=== PATIENT | male | born 1960 | race Two or more races ===

== ENCOUNTER 2024-08-19 11:35 | Inpatient (IN) | payer OTHER ==
[2024-08-19] VITALS (27 sets, daily range): BP systolic 96–138; BP diastolic 51–89; PULSE 71–97; RESP 11–31; TEMP 99.1; O2SAT 94–99
[~2024-08-19] VITALS: Ht 177.8 cm; Wt 104.0 kg
--- NOTE | 2024-08-19 11:55 | ED.PDOC ---
CPR-HPI HPI Comments HPI: 64 M BIBA, for the c/c of a Cardiac Arrest, EMS states that pt was found collapsed in the shower by his , per EMS stated that pt was cyonotic, and started Compression and mouth to mouth. EMS states pt was hypotensive at 55 before administering 1 mg of epi, pt proceeded to go into V-Fib, then Shocked, pt was then in Sinus Tach 125. Pt is currently unresponsive at this time, with symetical but non-dilated pupils. Blood sugar currently 255. PMHx: SOB, Asthma, Higher lipidemia PSHx: Unknown Allergies: NKDA CARDIAC ARREST: HPI: Poor Historian. REVIEW OF SYSTEMS: Unable to obtain given the patient's unresponsive state post cardiac arrest. CONSTITUTIONAL: Denies acute: fever, diaphoresis, chills, generalized weakness. HEAD: Denies acute: headache, photophobia Eyes: Denies acute: Double vision, vision loss, eye pain, eye discharge. EARS: Denies acute: tinnitus, hearing loss, ear discharge, ear pain, THROAT: Denies acute: sore throat, swelling, difficulty swallowing , pain with swallowing, change in voice. NECK: Denies acute: neck pain, neck swelling, stiff neck. HEART: Denies acute : chest pain, palpitations, LUNGS: Denies acute: SOB, wheezing, cough, hemoptysis ABDOMEN: Denies acute: abdominal pain, Nausea, Vomiting, diarrhea, melena , hematemesis, hematochezia SKIN: Denies acute: rash, redness, lesions, itchiness. EXTREMITIES: Denies acute: calf pain, numbness, tingling, weakness, denies pain in extremity. Denies acute: Low back pain. Neuro: Denies acute: focal neurological deficit, motor or sensory focal neurological deficit, tremors, seizure like activity, confusion, dizziness, change in mental status, loss of bowel or bladder function, cauda equina like symptoms. : Denies acute: dysuria, hematuria, flank pain, increase in urinary frequency. PSYCH: Denies acute: hallucination, suicidal ideation, homicidal ideation. PHYSICAL EXAM: General: Unresponsive, post cardiac arrest, post CPR, post cardiac shock. Head: normocephalic, atraumatic. Noted nasal bridge injury Neck: C-collar was placed immediately upon arrival. Throat: No apparent bleeding. Eyes:, no erythema, no purulent discharge, no proptosis, no icterus. Heart: regular tachycardia,, no significant murmur appreciated. Lungs: No wheezing, bilateral rhonchi, no crackles. No stridors Abdomen: Noticeably distended. Most likely from the intubation being in the esophagus. Neuro: GCS 3, Pupils: Symmetrical, nondilated, nonreactive. Skin: no petechia, no purpura, no cyanosis, non-pale, not jaundice. Lower extremities: --no - Pitting edema no deformity, no focal swelling, no calf TTP. Noted below left knee IO access done in the field. Face: no apparent facial droop. ED COURSE: Chief Complaint: CPR Time Seen by MD: 11:35 Reviewed Notes: Medications, Allergies Allergies: Coded Allergies: NO KNOWN ALLERGIES (Unverified , 08/19/24) Information Source: Emergency Med Personnel Mode of Arrival: EMS Past Medical History PAST MEDICAL HISTORY: Asthma Surgical History: Unknown Family History Family History: Unknown Social History Smoker: Unknown Alcohol: Unknown Drugs: Unknown Lives In: Home Was a procedure done? 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 Indication: Volume resuscitation Room prepared for procedure: Yes [employer] performed hand hygien: Yes Maximal sterile barrier precau: Mask/Eye shield, Sterile gown, Cap, Sterlie gloves, Large sterlie drape Skin Preparation: Chlorhexidine gluconate Insertion site: Left, Femoral Central line catheter type: Ysb-rjrtlxyi-vug dialysis Number of lumens: 3 Differential Dx CPR Differential Diagnosis: Cardiopulmonary arrest, Cardiac Tamponade, Cardiogenic shock, Dysrhythmia, Electrolyte disorder, Heart Block, Myocardial Infarction, Pneumothorax, Pulmonary Embolus, Respiratory Failure, Ruptured Aortic Aneurysm, Other (Includes but not limited to thyroid disease, encephalopathy, electrolyte abnormality, sepsis, infection, intracranial pathology, drug adverse effects, arrhythmia, kidney insufficiency, ACS, CVA, malignancy, anemia) X-Ray, Labs, Meds, VS Vital Signs Date Time Temp Pulse Resp B/P (MAP) Pulse Ox O2 Delivery O2 Flow Rate FiO2 08/19/24 14:32 119/62 08/19/24 14:30 98 27 135/76 (95) 97 08/19/24 14:29 97 31 135/76 (95) 98 40 08/19/24 14:15 89 18 119/62 (81) 96 08/19/24 14:00 95 18 121/74 (90) 95 08/19/24 13:45 89 18 120/62 (81) 97 08/19/24 13:32 113/46 08/19/24 13:30 84 18 106/52 (70) 98 08/19/24 13:15 83 18 101/60 (74) 99 08/19/24 13:04 92/58 08/19/24 13:00 89 29 138/89 99 100 08/19/24 13:00 86 18 92/58 (69) 98 08/19/24 12:45 89 15 101/66 (78) 99 08/19/24 12:43 89 08/19/24 12:30 107 14 106/52 (70) 99 08/19/24 12:17 89 29 138/89 (105) 99 100 08/19/24 12:15 107 14 135/79 (97) 99 08/19/24 12:04 138/89 08/19/24 12:00 107 14 124/67 (86) 98 08/19/24 12:00 105 08/19/24 11:45 98.0 110 11 179/154 (162) 98 98.0 08/19/24 11:45 73 11 98 Mechanical Ventilator+ 40 40 08/19/24 11:39 91 Lab Test 08/19/24 13:43 08/19/24 13:35 08/19/24 13:10 08/19/24 11:45 Range/Units Prothrombin Time 11.2 9.3-11.8 sec Prothrombin Time INR 1.06 0.9-1.15 Activated Partial Thromboplast Time 24.7 24.5-34.5 SEC Lactic Acid Level 3.1 *H 14.5 *H 0.4-2.0 mmol/L Troponin I High Sensitivity 114 *H 51 </=54 ng/L Blood Gas Specimen Type Arterial Blood Gas Sample Site Right radial Blood Gas Patient Temperature 37.0 Arterial Blood Date Drawn [id number] Arterial Blood pH 7.298 L 7.350-7.450 Arterial Blood Partial Pressure CO2 36.1 35.0-48.0 mmHg Arterial Blood Partial Pressure O2 425.4 *H 83.0-108.0 mmHg Arterial Blood HCO3 17.3 L 21.0-28.0 mmol/L Arterial Blood Oxygen Saturation 99.9 H 94.0-98.0 % Arterial Blood Base Excess -8.3 L -2.0-3.0 mmol/L Arterial Blood Oxyhemoglobin 98.7 H 94.0-98.0 % Arterial Blood Carboxyhemoglobin 0.5 0.5-1.5 % Arterial Blood Methemoglobin 0.7 0.0-1.5 % Thee Test Modified Blood Gas Total Hemoglobin 15.60 13.5-17.5 g/dL Blood Gas Set Respiration Rate 24.0 Blood Gas Modality Vent - ac FiO2 % 100.0 Blood Gas Tidal Volume 550.0 Blood Gas PEEP or CPAP 5.0 Blood Gas Critical Value Read Back yes Blood Gas Notified Whom Blood Gas Notified Time [id number] Blood Gas Notified By detention officer harriet Urine Color Yellow Yellow Urine Clarity Turbid H Clear Urine pH 6.0 5.0-9.0 Urine Specific Boron 1.018 1.001-1.035 Urine Protein 2+ H Negative Urine Ketones Negative Negative Urine Blood 2+ H Negative /uL Urine Nitrite Negative Negative Urine Bilirubin Negative Negative Urine Urobilinogen Normal Negative mg/dL Urine Leukocyte Esterase Negative Negative /uL Urine RBC 12 0 - 3 /hpf Urine Microscopic WBC 7 H 0-3 /HPF Urine Squamous Epithelial Cells Mod <5 /hpf Urine Bacteria Few H None Seen /hpf Urine Mucus Few None Seen Urine Creatinine 108.36 30.0-125.0 mg/dL Urine Sodium 51 40-220 mmol/L Urine Glucose 1+ H Normal mg/dL Urine Opiates Screen Neg NEGATIVE Urine Fentanyl Screen Neg NEGATIVE Urine Barbiturates Screen Neg NEGATIVE Urine Phencyclidine Screen Neg NEGATIVE Urine Amphetamines Screen Neg NEGATIVE Urine Benzodiazepines Screen Pos NEGATIVE Urine Cocaine Screen Neg NEGATIVE Urine Cannabinoids Screen Neg NEGATIVE White Blood Count 8.3 4.4-10.8 10^3/uL Red Blood Count 4.95 4.5-5.90 10^6/uL Hemoglobin 15.2 13.5-17.5 g/dL Hematocrit 48.1 41.0-53.0 % Mean Corpuscular Volume 97.2 80.0-100.0 fL Mean Corpuscular Hemoglobin 30.7 28.0-32.0 pg Mean Corpuscular Hemoglobin Concent 31.6 L 32.0-36.0 g/dL Red Cell Distribution Width 15.4 H 11.8-14.3 % Platelet Count 211 140-450 10^3/uL Mean Platelet Volume 8.9 6.9-10.8 fL Neutrophils (%) (Auto) 35.5 L 37.0-80.0 % Lymphocytes (%) (Auto) 53.3 H 10.0-50.0 % Monocytes (%) (Auto) 8.2 0.0-12.0 % Eosinophils (%) (Auto) 2.4 0.0-7.0 % Basophils (%) (Auto) 0.6 0.0-2.0 % Neutrophils # (Auto) 3.0 1.6-8.6 10 ^3/uL Lymphocytes # (Auto) 4.4 0.4-5.4 10 ^3/uL Monocytes # (Auto) 0.7 0-1.3 10 ^3/uL Eosinophils # (Auto) 0.2 0-0.8 10 ^3/uL Basophils # (Auto) 0 0-0.2 10 ^3/uL Nucleated Red Blood Cells 0.3 % Erythrocyte Sedimentation Rate 7 0-20 mm/hr Sodium Level 144 136-145 mmol/L Potassium Level 5.2 H 3.5-5.1 mmol/L Chloride Level 108 H 98-107 mmol/L Carbon Dioxide Level 13 L 20-31 mmol/L Anion Gap 23 H 5-15 Blood Urea Nitrogen 15 9-23 mg/dL Creatinine 1.33 H 0.700-1.30 mg/dL Glomerular Filtration Rate Calc 59 >90 mL/min BUN/Creatinine Ratio 11.3 10.0-20.0 Serum Glucose 324 H 74-106 mg/dL Calcium Level 9.9 8.7-10.4 mg/dL Magnesium Level 2.5 1.6-2.6 mg/dL Total Bilirubin 0.3 0.2-1.0 mg/dL Aspartate Amino Transferase (AST) 135 H 13-40 U/L Alanine Aminotransferase (ALT) 169 H 7-40 U/L Alkaline Phosphatase 76 46-116 U/L C-Reactive Protein High Sensitivity 0.86 <1.0 mg/dL B-Type Natriuretic Peptide 175.57 0-100 pg/mL Total Protein 6.9 5.7-8.2 g/dL Albumin 4.5 3.2-4.8 g/dL Microbiology Date/Time Source Procedure Growth Status 08/19/24 13:10 Voided Urine Urine Culture - Preliminary Resulted 08/19/24 12:30 Blood Blood Culture - Preliminary Resulted 08/19/24 11:45 Sputum Gram Stain - Final Resulted 08/19/24 11:45 Sputum Respiratory Culture - Preliminary Resulted 08/19/24 11:40 Blood Blood Culture - Preliminary NO GROWTH AFTER 24 HOURS OF INCUBATION. Resulted Time of 1ST Reevaluation: 11:54 Reevaluation 1ST: Unchanged Time of 2ND Reevaluation: 22:46 (Initial chemistry obtained shows hyperglycemia with anion gap of 23. Patient has no history of diabetes. I suspect that this is due to the cardiac arrest. Patient was given fluids resuscitation. Repeat CMP was ordered at this time and still awaiting results. The care of this patient was transferred to my colleague to follow up on the repeat CMP and notified the admitting team as needed. Patient has already been admitted awhile ago and is awaiting bed assignment.) Patient Education/Counseling: Pt Unresponsive Family Education/Counseling: No Family Present Comments Patient was evaluated immediately upon arrival. C-collar was placed immediately upon arrival. Patient arrived in sinus tachycardia with rock. Patient was intubated in the field however it was not in the endotracheal tube it was in the esophagus instead. Patient was appropriately ventilated bag-valve mask and preoxygenated and GlideScope was used to intubate the patient. Successful intubation from 1st attempt. OG tube was placed. Fluids were given to the patient. Given his history of asthma, patient was given albuterol ipratropium and Solu-Medrol. Patient met sepsis criteria, patient was given broad-spectrum antibiotics and fluids. Versed was used for sedation and patient required an additional drip because he was breathing over the vent and biting the tube. Propofol was initiated as well. Central line was placed. C-collar was left in place for reassessment with the patient is awake. Repeat CMP shows significant improvement and lactic acid improvement. Departure 1 Departure Time of Disposition: 12:26 Impression: Primary Impression: Cardiopulmonary arrest Additional Impressions: Ventricular fibrillation Syncope and collapse Facial injury Disposition: ADMITTED INPATIENT Admit to: ICU Condition: Critical Discharged With: Self Critical Care Note Critical Care Time?: Yes (90 min-critical care time only) Heart Score Heart Score: Heart Score Response (Comments) Value History Slightly Suspicious 0 EKG Normal 0 Age >65 2 Risk Factors 1 or 2 risk factors 1 Troponin >3 x's Normal limit 2 Total 5 I personally scribed for OLGA LIDIA MAE DO ([email or web address]) on 08/19/24 at 11:55. Electronically submitted by Max Smith ([email or web address]). I personally scribed for OLGA LIDIA MAE DO ([email or web address]) on 08/19/24 at 11:59. Electronically submitted by Jonas Avery ([email or web address]). I personally scribed for OLGA LIDIA MAE DO ([email or web address]) on 08/19/24 at 20:20. Electronically submitted by Max Smith [email or web address]). OLGA LIDIA MAE DO August 19, 2024 11:55
[2024-08-19] MEDS ORDERED: methylPREDNISolone SOD SUCC 125 MG/2 ML VL IV ONE (12:00)
[2024-08-19] MEDS: SODIUM CHLORIDE 0.9% 1,000 ML IV ONE ×5 (12:00→21:13)
[2024-08-19 12:02] LABS: Basophils # (auto) 0 10 ^3/uL (0-0.2); Basophils % (auto) 0.6 % (0.0-2.0); Eosinophils # (auto) 0.2 10 ^3/uL (0-0.8); Eosinophils % (auto) 2.4 % (0.0-7.0); Hematocrit 48.1 % (41.0-53.0); Hemoglobin 15.2 g/dL (13.5-17.5); Lymphocytes # (auto) 4.4 10 ^3/uL (0.4-5.4); Lymphocytes % (auto) 53.3 % (10.0-50.0); Mean Corpuscular Hemoglobin 30.7 pg (28.0-32.0); Mean Corpuscular Hgb Conc. 31.6 g/dL (32.0-36.0); Mean Corpuscular Volume 97.2 fL (80.0-100.0); Monocytes # (auto) 0.7 10 ^3/uL (0-1.3); Monocytes % (auto) 8.2 % (0.0-12.0); Neutrophils % (auto) 35.5 % (37.0-80.0); Nucleated Red Blood Cells % 0.3 %; Platelet Count (auto) 211 10^3/uL (140-450); Red Blood Cells 4.95 10^6/uL (4.5-5.90); Red Cell Distribution Width 15.4 % (11.8-14.3); White Blood Cell 8.3 10^3/uL (4.4-10.8)
[2024-08-19] MEDS: methylPREDNISolone SOD SUCC 40 MG/ML VL IV ONE (12:02)
[2024-08-19] MEDS: MIDAZOLAM DRIP 50 mg/50mL 50 ML IV ONE (12:03)
[2024-08-19] MEDS: MIDAZOLAM DRIP 50 mg/50mL 50 ML IV SCH (12:04)
[2024-08-19] MEDS: IPRATROPIUM BROM 0.5 MG/2.5ML INH SOL ONE (12:09)
[2024-08-19] MEDS: ALBUTEROL SULF 2.5 MG/0.5ML(0.5%) NEB SOLN ONE (12:09)
--- NOTE | 2024-08-19 12:17 | DVH ---
CHEST RADIOGRAPH Indication: cardiac arrest Technique: Single frontal view of the chest was obtained COMPARISON: None FINDINGS: Lines and Tubes: Endotracheal tube, enteric catheter in satisfactory position. Lungs: Mild congestion Pleura: No effusion. No pneumothorax. Cardiomediastinal contours: Unremarkable Bones: Unremarkable IMPRESSION: Lines and tubes in satisfactory position.
[2024-08-19 12:23] LABS: Albumin 4.5 g/dL (3.2-4.8); Alkaline Phosphatase 76 U/L (46-116); Anion Gap 23 (5-15); Bilirubin, Total 0.3 mg/dL (0.2-1.0); Calcium 9.9 mg/dL (8.7-10.4); Magnesium 2.5 mg/dL (1.6-2.6); Sodium 144 mmol/L (136-145); Total Protein 6.9 g/dL (5.7-8.2)
[2024-08-19 12:25] LABS: Lactic Acid w/Reflex 14.5 mmol/L (0.4-2.0)
[2024-08-19 12:29] LABS: BUN/Creatinine Ratio 11.3 (10.0-20.0)
[2024-08-19 12:30] LABS: Alanine Aminotransferase 169 U/L (7-40); Aspartate Aminotransferase 135 U/L (13-40); Carbon Dioxide 13 mmol/L (20-31); Chloride 108 mmol/L (98-107); Glucose 324 mg/dL (74-106)
[2024-08-19 12:32] LABS: Blood Urea Nitrogen 15 mg/dL (9-23); Potassium 5.2 mmol/L (3.5-5.1)
[2024-08-19] MEDS: NOREPINEPHRINE 8 MG/250ML KIT 250 ML IV ONE (13:00)
--- NOTE | 2024-08-19 13:06 | DVH ---
EXAM: CT CERVICAL WITHOUT CONTRAST HISTORY: cardiac arrest COMPARISON: None CTDIvol 23.52 mGy, DLP 582.95 mGy*cm. TECHNIQUE: Multiple axial CT images of the spine were obtained using bone algorithm. Axial and verdin l reformatting was done. Bone and soft tissue windows were reviewed. FINDINGS: No evidence of definite acute fracture, spinal dislocation, or significant appearing acute subluxatio n is seen. Multilevel degenerative changes of the spine. Enteric tube and enteric catheter is partially visualized. IMPRESSION: No definite CT evidence of acute fracture or dislocation of the bony cervical spine.
--- NOTE | 2024-08-19 13:10 | DVH ---
CT HEAD WITHOUT CONTRAST Indication: cardiac arrest EXAM DATE: 08/19/2024 12:22 PM COMPARISON: None TECHNIQUE:CT of the head, maxillofacial boneswithout intravenous contrast. RADIATION DOSE: CTDIvol: 64.52 mGy, DLP: 1238.96 mGy*cm FINDINGS: There is no intracranial hemorrhage. There is no extra-axial fluid, mass, mass effect or midline shif t. The ventricles are midline and normal in size. Basilar cisterns are patent. Mild periventricular a nd subcortical white matter chronic microvascular ischemic changes. There is mild global cerebral volume loss. Mastoids well pneumatized. Mucosal thickening of the ethmoids, sphenoids. Mild cortical irregularity nasal bone. IMPRESSION: 1. No intracranial hemorrhage or mass effect. 2. Mild global cerebral volume Loss. 3. Cortical irregularity of the nasal bone may represent fracture. Correlate with point tenderness. 4. Ethmoid, sphenoid sinus disease.
[2024-08-19] MEDS: PIPERACILLIN-TAZOB 3.375GM 100 ML IV ONE (13:30)
[2024-08-19 13:40] LABS: Base Excess -8.3 mmol/L (-2.0-3.0)
--- NOTE | 2024-08-19 13:48 | DVHHP2 ---
Admitting Diagnosis: Cardiac arrest History of Present Illness 64 M BIBA, for the c/c of a Cardiac Arrest, EMS states that pt was found collapsed in the shower by his , per EMS stated that pt was cyonotic, and started Compression and mouth to mouth. EMS states pt was hypotensive at 55 before administering 1 mg of epi, pt proceeded to go into V-Fib, then Shocked, pt was then in Sinus Tach 125. Pt is currently unresponsive at this time, with symetical but non-dilated pupils. Blood sugar currently 255. PMHx: SOB, Asthma, Higher lipidemia PSHx: Unknown Allergies: NKDA REVIEW OF SYSTEMS: Unable to obtain given the patient's unresponsive state post cardiac arrest. CONSTITUTIONAL: Denies acute: fever, diaphoresis, chills, generalized weakness. HEAD: Denies acute: headache, photophobia Eyes: Denies acute: Double vision, vision loss, eye pain, eye discharge. EARS: Denies acute: tinnitus, hearing loss, ear discharge, ear pain, THROAT: Denies acute: sore throat, swelling, difficulty swallowing , pain with swallowing, change in voice. NECK: Denies acute: neck pain, neck swelling, stiff neck. HEART: Denies acute : chest pain, palpitations, LUNGS: Denies acute: SOB, wheezing, cough, hemoptysis ABDOMEN: Denies acute: abdominal pain, Nausea, Vomiting, diarrhea, melena , hematemesis, hematochezia SKIN: Denies acute: rash, redness, lesions, itchiness. EXTREMITIES: Denies acute: calf pain, numbness, tingling, weakness, denies pain in extremity. Denies acute: Low back pain. Neuro: Denies acute: focal neurological deficit, motor or sensory focal neurological deficit, tremors, seizure like activity, confusion, dizziness, change in mental status, loss of bowel or bladder function, cauda equina like symptoms. : Denies acute: dysuria, hematuria, flank pain, increase in urinary frequency. PSYCH: Denies acute: hallucination, suicidal ideation, homicidal ideation. Allergies: Coded Allergies: NO KNOWN ALLERGIES (Unverified , 08/19/24) Information Source: Emergency Med Personnel Mode of Arrival: EMS PAST MEDICAL HISTORY: Asthma Surgical History: Unknown Family History: Unknown Social History Smoker: Unknown Alcohol: Unknown Drugs: Unknown Lives In: Home Allergies: Coded Allergies: NO KNOWN ALLERGIES (Unverified , 08/19/24) Current Medications Current Medications Medications (Trade) Dose Ordered Sig/Noemi Route PRN Reason Start Time Stop Time Status Last Admin Midazolam HCl 50 ml @ 1 mls/hr Q24H IV 08/19/24 12:00 08/19/24 12:04 Vital Signs Vital Signs Date Time Temp Pulse Resp B/P (MAP) Pulse Ox O2 Delivery O2 Flow Rate FiO2 08/19/24 13:32 113/46 08/19/24 13:00 89 29 99 100 Physical Exam Generally 64 years old male, well nourished well developed. No apparent distress patient is intubated and sedated HEENT-facial trauma, no gross bleeding, dry blood at the nasal region Heart-regular rate and rhythm Lungs decreased breath sounds bilaterally Abdomen soft, nontender, mildly distended Musculoskeletal-no edema cyanosis Neuro-intubated sedated Results Labs Test 08/19/24 13:43 08/19/24 13:35 08/19/24 13:10 08/19/24 11:45 Range/Units Prothrombin Time 11.2 9.3-11.8 sec Prothrombin Time INR 1.06 0.9-1.15 Activated Partial Thromboplast Time 24.7 24.5-34.5 SEC Lactic Acid Level 3.1 *H 0.4-2.0 mmol/L Troponin I High Sensitivity 114 *H </=54 ng/L Blood Gas Specimen Type Arterial Blood Gas Sample Site Right radial Blood Gas Patient Temperature 37.0 Arterial Blood Date Drawn [id number] Arterial Blood pH 7.298 L 7.350-7.450 Arterial Blood Partial Pressure CO2 36.1 35.0-48.0 mmHg Arterial Blood Partial Pressure O2 425.4 *H 83.0-108.0 mmHg Arterial Blood HCO3 17.3 L 21.0-28.0 mmol/L Arterial Blood Oxygen Saturation 99.9 H 94.0-98.0 % Arterial Blood Base Excess -8.3 L -2.0-3.0 mmol/L Arterial Blood Oxyhemoglobin 98.7 H 94.0-98.0 % Arterial Blood Carboxyhemoglobin 0.5 0.5-1.5 % Arterial Blood Methemoglobin 0.7 0.0-1.5 % Thee Test Modified Blood Gas Total Hemoglobin 15.60 13.5-17.5 g/dL Blood Gas Set Respiration Rate 24.0 Blood Gas Modality Vent - ac FiO2 % 100.0 Blood Gas Tidal Volume 550.0 Blood Gas PEEP or CPAP 5.0 Blood Gas Critical Value Read Back yes Blood Gas Notified Whom Blood Gas Notified Time [id number] Blood Gas Notified By retail loss prevention specialist harriet White Blood Count 8.3 4.4-10.8 10^3/uL Red Blood Count 4.95 4.5-5.90 10^6/uL Hemoglobin 15.2 13.5-17.5 g/dL Hematocrit 48.1 41.0-53.0 % Mean Corpuscular Volume 97.2 80.0-100.0 fL Mean Corpuscular Hemoglobin 30.7 28.0-32.0 pg Mean Corpuscular Hemoglobin Concent 31.6 L 32.0-36.0 g/dL Red Cell Distribution Width 15.4 H 11.8-14.3 % Platelet Count 211 140-450 10^3/uL Mean Platelet Volume 8.9 6.9-10.8 fL Neutrophils (%) (Auto) 35.5 L 37.0-80.0 % Lymphocytes (%) (Auto) 53.3 H 10.0-50.0 % Monocytes (%) (Auto) 8.2 0.0-12.0 % Eosinophils (%) (Auto) 2.4 0.0-7.0 % Basophils (%) (Auto) 0.6 0.0-2.0 % Neutrophils # (Auto) 3.0 1.6-8.6 10 ^3/uL Lymphocytes # (Auto) 4.4 0.4-5.4 10 ^3/uL Monocytes # (Auto) 0.7 0-1.3 10 ^3/uL Eosinophils # (Auto) 0.2 0-0.8 10 ^3/uL Basophils # (Auto) 0 0-0.2 10 ^3/uL Nucleated Red Blood Cells 0.3 % Sodium Level 144 136-145 mmol/L Potassium Level 5.2 H 3.5-5.1 mmol/L Chloride Level 108 H 98-107 mmol/L Carbon Dioxide Level 13 L 20-31 mmol/L Anion Gap 23 H 5-15 Blood Urea Nitrogen 15 9-23 mg/dL Creatinine 1.33 H 0.700-1.30 mg/dL Glomerular Filtration Rate Calc 59 >90 mL/min BUN/Creatinine Ratio 11.3 10.0-20.0 Serum Glucose 324 H 74-106 mg/dL Calcium Level 9.9 8.7-10.4 mg/dL Magnesium Level 2.5 1.6-2.6 mg/dL Total Bilirubin 0.3 0.2-1.0 mg/dL Aspartate Amino Transferase (AST) 135 H 13-40 U/L Alanine Aminotransferase (ALT) 169 H 7-40 U/L Alkaline Phosphatase 76 46-116 U/L C-Reactive Protein High Sensitivity 0.86 <1.0 mg/dL B-Type Natriuretic Peptide 175.57 0-100 pg/mL Total Protein 6.9 5.7-8.2 g/dL Albumin 4.5 3.2-4.8 g/dL Primary Diagnosis Cardiac arrest Lactic acidosis Syncope Facial trauma Plan Patient is intubated and sedated Admit to ICU Continue for pressor support, Versed for sedation Daily SBT, and SAT Vent management per Dr. saran Bustos and Nicole for broad-spectrum antibiotics Check blood culture, sputum culture, UA urine culture Check drug studies urine Check procalcitonin, CRP, ESR for possible infection etiology Check echo of the heart for syncope, and cardiac shock Check carotid Dopplers to assess for cyanosis and syncope Neuro check per floor protocol Nutrition consult for tube diet Insert NG tubes Trend lactic acid q.4h q.6 hours until plateau Trend troponin q.4 to q.6 hours until plateau Cardiology consult for elevated troponin rule out ACS, cardiac arrest Full code Lovenox for DVT prophylaxis PPI for GI prophylaxis in view of intubation Tube diet per nutrition Plan discussed with: Patient Problems List: (1) Elevated troponin (2) Syncope and collapse Status: Acute (3) Ventricular fibrillation Status: Acute (4) Cardiopulmonary arrest Status: Acute Date of Service: August 19, 2024 Billing Provider: FADI AGUILAR MD Common Visit Codes: [id number] CARE 30-74 MIN, [id number] CARE-EACH +30MIN FADI AGUILAR MD August 19, 2024 13:48
[2024-08-19 14:24] LABS: INR 1.06 (0.9-1.15); Partial Thromboplastin Time 24.7 SEC (24.5-34.5); Prothrombin Time 11.2 sec (9.3-11.8)
[2024-08-19] MEDS ORDERED: VANCOMYCIN PER PHARMACY 0 MG IV SCH (14:30)
[2024-08-19] MEDS ORDERED: DOCUSATE SOD 100 MG CAP PO PRN (14:45)
[2024-08-19] MEDS ORDERED: HYDROcodone-ACET 5/325MG TAB PO PRN (14:45)
[2024-08-19] MEDS ORDERED: ONDANSETRON HCL 4 MG/2 ML VIAL IV PRN (14:45)
[2024-08-19] MEDS ORDERED: HYDROmorphone HCL 2 MG/ML VL/or syr IV PRN (14:45)
[2024-08-19] MEDS ORDERED: DEXTROSE (50%) 50ML SYRG IV PRN (14:45)
[2024-08-19] MEDS: ALBUTEROL SULF 2.5 MG/0.5ML(0.5%) NEB SOLN NEB ONE (14:57)
[2024-08-19] MEDS: IPRATROPIUM BROM 0.5 MG/2.5ML INH SOL NEB ONE (14:57)
--- NOTE | 2024-08-19 15:12 | DVH ---
INDICATION: CAESAR TECHNIQUE: Multiple real-time sonographic images of the kidneys and bladder were obtained. COMPARISON: None FINDINGS: RIGHT kidney measures 12.0 cm in length. Multiple right renal cysts are present measuring up to 2.5 c m. No hydronephrosis. LEFT kidney measures 11.4 cm in length. No hydronephrosis. Ferrer catheter in the urinary bladder. IMPRESSION: No acute findings.
[2024-08-19 15:18] LABS: Urine Bacteria FEW /hpf (None Seen); Urine Blood 2+ /uL (Negative); Urine Clarity Turbid (Clear); Urine Color Yellow (Yellow); Urine Mucus FEW (None Seen); Urine Protein, UAD 2+ (Negative); Urine Specific Gravity 1.018 (1.001-1.035); Urine Squamous Epithelial Cell MOD /hpf (<5); Urine Urobilinogen Normal (Negative); Urine WBC 7 /HPF (0-3)
[2024-08-19 15:25] LABS: Creatinine, Urine 108.36 mg/dL (30.0-125.0)
[2024-08-19 15:29] LABS: Erythrocyte Sedimentation Rate 7 mm/hr (0-20)
[2024-08-19] MEDS: fentaNYL CITRATE 100 MCG/2 ML VL IV ONE (15:37)
--- NOTE | 2024-08-19 16:44 | DVH ---
INDICATION: ELEVATED LFTS TECHNIQUE: Multiple real-time sonographic images were obtained of the right upper quadrant. COMPARISON: None FINDINGS: The liver demonstrates homogenous echotexture without focal mass lesions. Liver length is 1 5.7 cm. There is no intrahepatic or extrahepatic ductal dilatation. The common duct measures 0.63 c m . The gallbladder is without evidence of stone or sludge. The gallbladder wall measures 0119 cm and i s within normal limits. The right kidney measures 12.0 cm. The right kidney is normal in contour, size, and shape. The ech ogenicity is normal. There is no hydronephrosis. Cysts in the lower pole of the right kidney measuri ng 2.5 x 2.4 x 2.0 cm The pancreas is not well visualized due to overlying bowel gas. IMPRESSION: 1. Unremarkable right upper quadrant sonogram. 2. Small cysts in the lower pole of the right kidney
[2024-08-19 16:56] LABS: Cocaine Screen, Urine Neg (NEGATIVE)
[2024-08-19 16:57] LABS: Amphetamine Screen, Urine Neg (NEGATIVE); Barbiturate Scree,Urine Neg (NEGATIVE); Benzodiazephine Screen, Urine Pos (NEGATIVE); Cannabinoid Screen, Urine Neg (NEGATIVE); Opiate Scree,Urine Neg (NEGATIVE); Phencyclidine Screen, Urine Neg (NEGATIVE)
[2024-08-19] MEDS: PROPOFOL 100 ML IV ONE (17:06)
[2024-08-19] MEDS: PROPOFOL 100 ML IV SCH (17:30)
[2024-08-19 17:35] LABS: Lactic Acid w/Reflex 2.9 mmol/L (0.4-2.0)
[2024-08-19] MEDS: VANCOMYCIN 1.5GM/300ML 300 ML IV ONE (17:52)
[2024-08-19] MEDS: levETIRAcetam 1000 mg/100ml 100 ML IV ONE (17:52)
[2024-08-19] MEDS: ACCU-CHEK COMFORT CURVE STRIP VI SCH (18:00)
[2024-08-19] MEDS: InsuLIN REG 1unit/0.01ml Soln (100units/ml) SC SCH (18:45)
--- NOTE | 2024-08-19 19:02 | DVHNC2 ---
Intubation Indication: Respiratory Insufficiency Prep: Preoxygenation Pretreated with: Analgesia Intubation Approach: Orotracheal UTO Consent yes Notes 8 mm ETT inserted under guidance via GlideScope Positive color change on colorimetric capnography Bilateral chest rise and bilateral air entry auscultated Contusion seen in the ETT fixed at 24 cm at the upper teeth Date of Service: August 19, 2024 Billing Provider: OLGA LIDIA MAE DO Common Visit Codes: PROCEDURE ONLY BOZENA DOTSON RESIDENT August 19, 2024 19:02
--- NOTE | 2024-08-19 19:47 | ECG ---
[facility] Test Date: 2024-08-19 Test Time: 12:43:22 Pat Name: LEONIE TOMLIN Department: ED Room: [address] [place] [address] Gender: M Exit Booth Agent: : [id number] Requested By: OLGA LIDIA MAE Order Number: [id number] Reading MD: Ruddy Melchor Measurements Intervals [place] Rate: 89 P: 37 OH: 150 QRS: 14 QRSD: 167 T: -3 QT: 438 QTc: 534 Interpretive Statements Sinus rhythm Right bundle branch block Electronically Signed On 08-24-2024 11:40:27 PDT by Ruddy Melchor Please click the below link to view image of tracing.
--- NOTE | 2024-08-19 19:47 | ECG ---
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
--- NOTE | 2024-08-19 20:44 | RESUS ---
CODE BLUE ASSESSSMENT History of Events History of Events: 64 M BIBA, for the c/c of a Cardiac Arrest, EMS states that pt was found collapsed in the shower by his , per EMS stated that pt was cyonotic, and started Compression and mouth to mouth. EMS states pt was hypotensive at 55 before administering 1 mg of epi, pt proceeded to go into V-Fib, then Shocked, pt was then in Sinus Tach Initial Information Date: August 19, 2024 Time: 11:32 Location of Arrest: ER Arrest Witnessed: No CPR started by whom: Bystander Pre-Hospital Care: ACLS Type of arrest: Cardiac, Respiratory Spontaneous Respirations: No Pulse Present: Yes Monitoring: ECG, Pulse Oximetry, Telemetry Crash Cart Opened and Supplies: No Airway Ventilation Breathing at Onset: Assisted O2 Sat by Pulse Oximetry: 98 Oxygen Delivery Method: Ambu-Bag Oxygen 100% Intubation Size: 7.0 cuffed Intubated by: per Paramedics pre hospital Intubated orally: Yes Tube secured at: 24 Confirmation: Auscultation, Exhaled CO2 Suctioning (Oral/Tracheal): No Comments: Pre-hospital - 2 rounds Epi-obtained ROSC within [address] rhythm Circulation Circulation : Time: 11:35 Pulse Rate (adult): 112 Blood Pressure Systolic: 124 Blood Pressure Diastolic: 67 Temperature (Fahrenheit): 99.0 Procedure - IV Procedure - IV : IV Side: Left IV Location: Hand IV Placed: In Hospital IV Placed by Aries VELIZ IV Gauge: 18 IV Line Care: Saline Flush Procedure - Intraosseous Site of Intraosseous: Tibia oswaldo-medial Intraosseous inserted by: Per Paramedics Procedure - NG/OG Tube Procedure - NG/OG Tube : Type of gastric tube placed: OG Tube Size: 16 GI Tube Secured: Yes Gastric Tube Suction Type/Desc: Clamped NG Tube Patency/Placement: Patent, Auscultated, X-Ray Obtained NG/OG tube inserted by: Tiffany VELIZmeasurer - ABG ABG site: Rt Radial ABG done by: Lucrecia BOX STAMPER ABG number of attempts: 1 Nurses Notes Crescencio Coma Scale Eye Opening: None (1) Pratts Coma Scale Verbal: None (1) Pratts Coma Scale Motor: None (1) Pupil Reaction: Non Reactive Bedside Blood Glucose: 255 EKG Rhythm: Sinus Tachycardia Nurses Notes - Comment: Obtained ROSC prior to arrival at hospital Time Code Ended Time Code Ended: 12:15 Outcome of code: Successful Code Team Present: Felice Montano RN, Esa RN, Hawa RN, Kael BOX STAMPER, Lucrecia BOX STAMPER, Shahana BOX STAMPER, Sol Cadena MD Post Resuscitation Neurologica Pupil Size: 3 ROSC Pt Meets Criteria for Therapeu: Chio Hemphill August 19, 2024 20:44
[2024-08-19] MEDS: PIPERACILLIN-TAZOB 3.375GM 100 ML IV SCH (21:08)
--- NOTE | 2024-08-19 23:04 | DVHNC2 ---
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
[2024-08-19 23:08] LABS: Albumin 3.9 g/dL (3.2-4.8); Alkaline Phosphatase 64 U/L (46-116); Anion Gap 10 (5-15); BUN/Creatinine Ratio 13.5 (10.0-20.0); Bilirubin, Total 0.3 mg/dL (0.2-1.0); Blood Urea Nitrogen 15 mg/dL (9-23); Potassium 4.2 mmol/L (3.5-5.1); Sodium 143 mmol/L (136-145); Total Protein 6.2 g/dL (5.7-8.2)
[2024-08-19 23:17] LABS: Alanine Aminotransferase 207 U/L (7-40); Aspartate Aminotransferase 160 U/L (13-40); Calcium 8.1 mg/dL (8.7-10.4); Carbon Dioxide 19 mmol/L (20-31); Chloride 114 mmol/L (98-107); Glucose 160 mg/dL (74-106)
[2024-08-20] VITALS (93 sets, daily range): BP systolic 86–148; BP diastolic 48–90; PULSE 47–92; RESP 0–34; TEMP 98–102; O2SAT 89–100
[2024-08-20] MEDS: NOREPINEPHRINE 8 MG/250ML KIT 250 ML IV SCH (01:35)
--- NOTE | 2024-08-20 05:06 | DVH ---
CHEST RADIOGRAPH Indication: INUTBATED Technique: Single frontal view of the chest was obtained Comparison: XY CHEST PORTABLE on DOS: 08/19/24 FINDINGS: Lines and Tubes: Endotracheal tube terminates 5.3 cm above the sandra. The enteric tube courses below the left hemidiaphragm and the tip extends outside the field of view. Lungs: Pulmonary interstitial prominence. Pleura: No effusion. No pneumothorax. Cardiomediastinal contours: Unremarkable Bones: No acute osseous abnormality. IMPRESSION: 1. Mild pulmonary edema.
[2024-08-20 05:26] LABS: Basophils # (auto) 0 10 ^3/uL (0-0.2); Basophils % (auto) 0.2 % (0.0-2.0); Eosinophils # (auto) 0 10 ^3/uL (0-0.8); Hematocrit 41.3 % (41.0-53.0); Hemoglobin 13.7 g/dL (13.5-17.5); Lymphocytes # (auto) 1.2 10 ^3/uL (0.4-5.4); Lymphocytes % (auto) 9.1 % (10.0-50.0); Mean Corpuscular Hgb Conc. 33.1 g/dL (32.0-36.0); Mean Corpuscular Volume 90.4 fL (80.0-100.0); Monocytes # (auto) 0.8 10 ^3/uL (0-1.3); Monocytes % (auto) 6.1 % (0.0-12.0); Neutrophils # (auto) 11.1 10 ^3/uL (1.6-8.6); Neutrophils % (auto) 84.6 % (37.0-80.0); Platelet Count (auto) 194 10^3/uL (140-450); Red Blood Cells 4.56 10^6/uL (4.5-5.90); Red Cell Distribution Width 14.3 % (11.8-14.3); White Blood Cell 13.1 10^3/uL (4.4-10.8)
[2024-08-20 05:36] LABS: Alkaline Phosphatase 63 U/L (46-116); Anion Gap 10 (5-15); BUN/Creatinine Ratio 14.4 (10.0-20.0); Blood Urea Nitrogen 14 mg/dL (9-23); Potassium 4.1 mmol/L (3.5-5.1); Sodium 142 mmol/L (136-145); Total Protein 6.4 g/dL (5.7-8.2)
[2024-08-20 05:37] LABS: Bilirubin, Total 0.4 mg/dL (0.2-1.0)
[2024-08-20 05:41] LABS: Alanine Aminotransferase 194 U/L (7-40); Aspartate Aminotransferase 119 U/L (13-40); Calcium 8.5 mg/dL (8.7-10.4); Carbon Dioxide 20 mmol/L (20-31); Chloride 112 mmol/L (98-107); Glucose 148 mg/dL (74-106)
[2024-08-20 06:21] LABS: Base Excess -5.4 mmol/L (-2.0-3.0)
[2024-08-20] MEDS ORDERED: IOHEXOL 350 MG/ML 100ML IJ ONE ×2 (08:23→08:36)
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
--- NOTE | 2024-08-20 09:25 | DVH ---
CT ANGIO HEAD/Neck INDICATION: SYNCOPE EXAM DATE: 08/20/2024 08:40 AM COMPARISON: None RADIATION DOSE: CTDIvol: 22 mGy, DLP: 888 mGy*cm PROCEDURE: CT angiogram images were obtained of the head and neck. Coronal and sagittal reformatted i mages were created as well as 3D and/or MIP reconstructions. All CT scans at this medical facility are performed using dose modulation techniques as appropriate t o a performed exam including the following: Automated exposure control was utilized; adjustment of th e MA and/or KV according to patient size; and use of iterative reconstruction technique. FINDINGS: Head: Please see prior CT head for details. On the CT angiographic images, the internal carotid arteries are normal in caliber from the skull bas e to their bifurcations. Hypoplastic or absent left A1 segment. Otherwise the anterior and middle cer ebral arteries and their branches appear normal. The anterior communicating artery appears normal. Th e bilateral posterior communicating arteries are normal. The vertebral arteries are codominant. The v ertebral, basilar, superior cerebellar, and posterior cerebral arteries are normal in caliber. No ane urysm, arteriovenous malformation, or stenosis is visible. Neck: There is a 20% narrowing of the proximal left internal carotid artery due to atherosclerosis. The common carotid, internal carotid, external carotid, and vertebral arteries are otherwise normal in caliber. The vertebral arteries are codominant. The visualized intracranial arteries are normal. T here is no evidence of contrast extravasation, filling defects, or dissection. The pharynx and airway are normal. The thyroid, submandibular, and parotid glands appear normal. No l ymphadenopathy is seen. The visualized intracranial structures are unremarkable. IMPRESSION: 20% narrowing of the proximal left internal carotid artery due to atherosclerosis. No acute abnormal CT angiographic findings of the head and neck.
[2024-08-20] MEDS: levETIRAcetam 1000 mg/100ml 100 ML IV SCH (10:00)
[2024-08-20] MEDS: ENOXAPARIN SOD 40 MG/0.4 ML SYRINGE SC SCH (10:00)
[2024-08-20] MEDS: VANCOMYCIN 1.5GM/300ML 300 ML IV SCH (10:26)
[2024-08-20] MEDS: ATORVASTATIN 20 MG TAB PO ONE (12:45)
--- NOTE | 2024-08-20 13:53 | DVHPN2 ---
Subjective Patient chemically sedated Reviewed: Care Plan, H&P, Labs, Medications Changes from previous H/P or p: No Changes General: Per HPI Objective Vitals Vital Signs Date Time Temp Pulse Resp B/P (MAP) Pulse Ox O2 Delivery O2 Flow Rate FiO2 08/20/24 13:39 52 24 104/69 (81) 100 35 08/20/24 13:35 Mechanical Ventilator+ 08/20/24 00:00 98.8 98.8 Intake/Output Intake and Output 08/20/24 07:00 Intake Total 2703.896 ml Output Total 1500 ml Balance 1203.896 ml Intake IV Total 2703.896 ml Output Urine Total 1500 ml General Appearance: mild distress, Other (Intubated and sedated) Lungs: Clear to auscultation, Normal air movement, Other (Mechanical ventilation) Cardiovascular: Normal S1, Normal S2, Other (ST depression noted) Abdomen: Normal bowel sounds, Soft, No tenderness Genitourinary: No Apparent Abnormalities (Ferrer catheter) Musculoskeletal: Other (No motor movement) Neuro: Other (Positive cough and gag with noxious stimuli) Skin: Dry, Intact Psych/Mental Status: Other (Unable to assess) Medications Current Medications Medications Dose Ordered Sig/Noemi Route Start Time Stop Time Status Last Admin Dose Admin Midazolam HCl 50 ml @ 1 mls/hr Q24H IV 08/19/24 12:00 08/20/24 05:58 9 MLS/HR Vancomycin HCl 0 ml @ 0 mls/hr UD IV 08/19/24 14:30 Piperacillin Sod/ Tazobactam Sod 100 ml @ 25 mls/hr Q8H IV 08/19/24 21:00 08/20/24 13:30 25 MLS/HR Docusate Sodium 100 mg BIDPRN PRN PO 08/19/24 14:45 Acetaminophen/ Hydrocodone Bitart 1 tab Q4HP PRN PO 08/19/24 14:45 Hydromorphone HCl 0.5 mg Q4HP PRN IV 08/19/24 14:45 Ondansetron HCl 4 mg Q4HP PRN IV 08/19/24 14:45 Diagnostic Test (Pha) 1 strip Q6HR 08/19/24 18:00 08/20/24 12:00 1 STRIP Insulin Human Regular Q6HR SC 08/19/24 18:00 08/20/24 00:17 2 UNITS Dextrose 50 ml UD PRN IV 08/19/24 14:45 Propofol 100 ml @ 3.13 mls/hr Q24H IV 08/19/24 17:30 08/20/24 10:53 21.908 MLS/HR Levetiracetam 100 ml @ 400 mls/hr BID IV 08/20/24 10:00 08/20/24 10:00 400 MLS/HR Vancomycin HCl 300 ml @ 150 mls/hr Q16H IV 08/20/24 10:00 08/20/24 10:26 150 MLS/HR Norepinephrine Bitartrate 250 ml @ 3.75 mls/hr Q24H IV 08/20/24 01:15 08/20/24 01:35 3.75 MLS/HR Aspirin 81 mg DAILY PO 08/21/24 10:00 Enoxaparin Sodium 100 mg Q12HR SC 08/20/24 22:00 Atorvastatin Calcium 80 mg HS PO 08/21/24 22:00 Laboratory Results Laboratory Tests 08/20/24 05:05 Chemistry Test 08/19/24 22:39 08/20/24 05:05 Albumin 3.9 g/dL (3.2-4.8) 4.0 g/dL (3.2-4.8) Calcium Level 8.1 mg/dL (8.7-10.4) L 8.5 mg/dL (8.7-10.4) L Total Protein 6.2 g/dL (5.7-8.2) 6.4 g/dL (5.7-8.2) Magnesium Level 2.0 mg/dL (1.6-2.6) LFT Test 08/19/24 22:39 08/20/24 05:05 Alanine Aminotransferase (ALT) 207 U/L (7-40) H 194 U/L (7-40) H Alkaline Phosphatase 64 U/L (46-116) 63 U/L (46-116) Aspartate Amino Transferase (AST) 160 U/L (13-40) H 119 U/L (13-40) H Total Bilirubin 0.3 mg/dL (0.2-1.0) 0.4 mg/dL (0.2-1.0) Urinalysis Test 08/19/24 13:10 Urine Color Yellow (Yellow) Urine Clarity Turbid (Clear) H Urine pH 6.0 (5.0-9.0) Urine Specific [place] 1.018 (1.001-1.035) Urine Protein 2+ (Negative) H Urine Ketones Negative (Negative) Urine Blood 2+ /uL (Negative) H Urine Nitrite Negative (Negative) Urine Bilirubin Negative (Negative) Urine Urobilinogen Normal mg/dL (Negative) Urine Leukocyte Esterase Negative /uL (Negative) Urine RBC 12 /hpf (0 - 3) Urine Microscopic WBC 7 /HPF (0-3) H Urine Squamous Epithelial Cells Mod /hpf (<5) Urine Bacteria Few /hpf (None Seen) H Urine Mucus Few (None Seen) Urine Creatinine 108.36 mg/dL (30.0-125.0) Urine Sodium 51 mmol/L (40-220) Urine Glucose 1+ mg/dL (Normal) H Blood Gas Results Test 08/20/24 06:16 Arterial Blood pH 7.387 (7.350-7.450) FiO2 % 40.0 Microbiology Microbiology Date/Time Source Procedure Growth Status 08/19/24 13:10 Voided Urine Urine Culture - Preliminary Resulted 08/19/24 12:30 Blood Blood Culture - Preliminary Resulted 08/19/24 11:45 Sputum Gram Stain - Final Resulted 08/19/24 11:45 Sputum Respiratory Culture - Preliminary Resulted Labs and/or images reviewed: Labs reviewed by me, Image(s) reviewed by me Assessment/Plan Assessment/Plan Impression: -cardiopulmonary arrest -NSTEMI, rule out type 1 -obesity -acute respiratory failure with mechanical ventilation -rule out anoxic encephalopathy -asthma -leukocytosis, rule out sepsis Plan: -cardiology consultation: Discussed case with Cardiology team. No intervention at this time -continue checking serial troponin, EKG for ST changes -weaned off sedation -PUD, DVT prophylaxis -continue full-dose anticoagulation with Lovenox, aspirin -repeat labs, chest x-ray, ABG in a.m. -discussion made with the patient's family were bedside. All questions answered. Total time spent with patient discussing and formulating plan of care: 35 minutes. This medical document was created using an electronic medical record system with [employer] system. Although this document has been carefully reviewed, there may still be some phonetic and typographical errors. These areas are purely typographical due to imperfections of the software programs, and do not reflect any compromise in the patient's medical care. Plan discussed with: Patient, Other (RN) My Orders Orders - DORON BO NP Procedure Category Date Status Time Mrsa Screen JAJA 08/20/24 In Process 12:40 Date of Service: August 20, 2024 Billing Provider: DORON BO NP Common Visit Codes: [id number] CARE 30-74 MIN DORON BO NP August 20, 2024 13:53
[2024-08-20] MEDS: ENOXAPARIN SOD 100 MG/1 ML SYRINGE SC SCH (22:35)
[2024-08-21] VITALS (104 sets, daily range): BP systolic 87–163; BP diastolic 55–104; PULSE 42–85; RESP 7–33; TEMP 96.8–100.6; O2SAT 90–100
[2024-08-21] MEDS: VANCOMYCIN 1.5GM/300ML 300 ML IV ONE (02:29)
[2024-08-21] MEDS ORDERED: ATROPINE SULF 1 MG/10ml SYR ONE (02:59)
[2024-08-21 03:16] LABS: Basophils # (auto) 0.1 10 ^3/uL (0-0.2); Basophils % (auto) 0.9 % (0.0-2.0); Eosinophils # (auto) 0 10 ^3/uL (0-0.8); Eosinophils % (auto) 0.1 % (0.0-7.0); Hemoglobin 13.5 g/dL (13.5-17.5); Lymphocytes # (auto) 2.2 10 ^3/uL (0.4-5.4); Lymphocytes % (auto) 19.5 % (10.0-50.0); Mean Corpuscular Hemoglobin 29.7 pg (28.0-32.0); Mean Corpuscular Hgb Conc. 32.8 g/dL (32.0-36.0); Mean Corpuscular Volume 90.4 fL (80.0-100.0); Monocytes # (auto) 0.6 10 ^3/uL (0-1.3); Monocytes % (auto) 5.4 % (0.0-12.0); Neutrophils # (auto) 8.4 10 ^3/uL (1.6-8.6); Neutrophils % (auto) 74.1 % (37.0-80.0); Platelet Count (auto) 184 10^3/uL (140-450); Red Blood Cells 4.53 10^6/uL (4.5-5.90); Red Cell Distribution Width 14.7 % (11.8-14.3); White Blood Cell 11.3 10^3/uL (4.4-10.8)
[2024-08-21 03:41] LABS: Alkaline Phosphatase 59 U/L (46-116); Anion Gap 8 (5-15); BUN/Creatinine Ratio 12.1 (10.0-20.0); Bilirubin, Total 0.4 mg/dL (0.2-1.0); Blood Urea Nitrogen 11 mg/dL (9-23); Calcium 8.8 mg/dL (8.7-10.4); Carbon Dioxide 22 mmol/L (20-31); Magnesium 2.3 mg/dL (1.6-2.6); Potassium 4.1 mmol/L (3.5-5.1); Sodium 144 mmol/L (136-145); Total Protein 6.3 g/dL (5.7-8.2)
[2024-08-21 04:10] LABS: Alanine Aminotransferase 164 U/L (7-40); Aspartate Aminotransferase 141 U/L (13-40); Chloride 114 mmol/L (98-107); Glucose 122 mg/dL (74-106)
--- NOTE | 2024-08-21 05:57 | DVH ---
EXAM: XR Chest, 1 View CLINICAL INDICATION: INTUBATED TECHNIQUE: Frontal view of the chest. COMPARISON: XY CHEST PORTABLE on DOS: 08/20/24, XY CHEST PORTABLE on DOS: 08/19/24 FINDINGS: LUNGS AND PLEURAL SPACES: See below. HEART: Cardiomegaly with mild congestion. MEDIASTINUM: Unremarkable. Normal mediastinal contour. BONES/JOINTS: Unremarkable. No acute fracture. TUBES, LINES AND DEVICES: The endotracheal tube (ETT) is in satisfactory position. Enteric tube ti p in the stomach. OTHER FINDINGS: . . . . IMPRESSION: Cardiomegaly with mild congestion.
[2024-08-21] MEDS ORDERED: ATROPINE SULF 1 MG/10ml SYR IV ONE (06:30)
--- NOTE | 2024-08-21 06:33 | ECG ---
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
[2024-08-21 07:02] LABS: Base Excess -4.5 mmol/L (-2.0-3.0)
--- NOTE | 2024-08-21 07:13 | DVHPN2 ---
Subjective Patient chemically sedated Reviewed: Care Plan, H&P, Labs, Medications Changes from previous H/P or p: No Changes General: Per HPI Objective Vitals Vital Signs Date Time Temp Pulse Resp B/P (MAP) Pulse Ox O2 Delivery O2 Flow Rate FiO2 08/21/24 06:48 87/56 08/21/24 06:30 98.6 59 24 95 209.5 08/21/24 06:27 30 08/21/24 06:00 Mechanical Ventilator+ Intake/Output Intake and Output 08/21/24 07:00 Intake Total 566.079 ml Output Total 1680 ml Balance -1113.921 ml Intake IV Total 566.079 ml Output Urine Total 1680 ml General Appearance: mild distress, Other (Intubated and sedated) Lungs: Clear to auscultation, Normal air movement, Other (Mechanical ventilation) Cardiovascular: Normal S1, Normal S2, Other (ST depression noted) Abdomen: Normal bowel sounds, Soft, No tenderness Genitourinary: No Apparent Abnormalities (Ferrer catheter) Musculoskeletal: Other (No motor movement) Neuro: Other (Positive cough and gag with noxious stimuli) Skin: Dry, Intact Psych/Mental Status: Other (Unable to assess) Medications Current Medications Medications Dose Ordered Sig/Noemi Route Start Time Stop Time Status Last Admin Dose Admin Midazolam HCl 50 ml @ 1 mls/hr Q24H IV 08/19/24 12:00 08/21/24 06:15 10 MLS/HR Vancomycin HCl 0 ml @ 0 mls/hr UD IV 08/19/24 14:30 Piperacillin Sod/ Tazobactam Sod 100 ml @ 25 mls/hr Q8H IV 08/19/24 21:00 08/21/24 05:29 25 MLS/HR Docusate Sodium 100 mg BIDPRN PRN PO 08/19/24 14:45 Acetaminophen/ Hydrocodone Bitart 1 tab Q4HP PRN PO 08/19/24 14:45 Hydromorphone HCl 0.5 mg Q4HP PRN IV 08/19/24 14:45 Ondansetron HCl 4 mg Q4HP PRN IV 08/19/24 14:45 Diagnostic Test (Pha) 1 strip Q6HR 08/19/24 18:00 08/21/24 05:29 1 STRIP Insulin Human Regular Q6HR SC 08/19/24 18:00 08/20/24 00:17 2 UNITS Dextrose 50 ml UD PRN IV 08/19/24 14:45 Propofol 100 ml @ 3.13 mls/hr Q24H IV 08/19/24 17:30 08/21/24 06:48 18.779 MLS/HR Levetiracetam 100 ml @ 400 mls/hr BID IV 08/20/24 10:00 08/20/24 22:34 400 MLS/HR Vancomycin HCl 300 ml @ 150 mls/hr Q16H IV 08/20/24 10:00 08/21/24 02:35 150 MLS/HR Norepinephrine Bitartrate 250 ml @ 3.75 mls/hr Q24H IV 08/20/24 01:15 08/20/24 01:35 3.75 MLS/HR Aspirin 81 mg DAILY PO 08/21/24 10:00 Enoxaparin Sodium 100 mg Q12HR SC 08/20/24 22:00 08/20/24 22:35 100 MG Atorvastatin Calcium 80 mg HS PO 08/21/24 22:00 Laboratory Results Laboratory Tests 08/21/24 03:05 Chemistry Test 08/21/24 03:05 Albumin 4.0 g/dL (3.2-4.8) Calcium Level 8.8 mg/dL (8.7-10.4) Magnesium Level 2.3 mg/dL (1.6-2.6) Total Protein 6.3 g/dL (5.7-8.2) LFT Test 08/21/24 03:05 Alanine Aminotransferase (ALT) 164 U/L (7-40) H Alkaline Phosphatase 59 U/L (46-116) Aspartate Amino Transferase (AST) 141 U/L (13-40) H Total Bilirubin 0.4 mg/dL (0.2-1.0) Urinalysis Test 08/19/24 13:10 Urine Color Yellow (Yellow) Urine Clarity Turbid (Clear) H Urine pH 6.0 (5.0-9.0) Urine Specific [place] 1.018 (1.001-1.035) Urine Protein 2+ (Negative) H Urine Ketones Negative (Negative) Urine Blood 2+ /uL (Negative) H Urine Nitrite Negative (Negative) Urine Bilirubin Negative (Negative) Urine Urobilinogen Normal mg/dL (Negative) Urine Leukocyte Esterase Negative /uL (Negative) Urine RBC 12 /hpf (0 - 3) Urine Microscopic WBC 7 /HPF (0-3) H Urine Squamous Epithelial Cells Mod /hpf (<5) Urine Bacteria Few /hpf (None Seen) H Urine Mucus Few (None Seen) Urine Creatinine 108.36 mg/dL (30.0-125.0) Urine Sodium 51 mmol/L (40-220) Urine Glucose 1+ mg/dL (Normal) H Blood Gas Results Test 08/21/24 06:56 Arterial Blood pH 7.420 (7.350-7.450) FiO2 % 30.0 Microbiology Microbiology Date/Time Source Procedure Growth Status 08/19/24 13:10 Voided Urine Urine Culture - Preliminary Resulted 08/19/24 12:30 Blood Blood Culture - Preliminary Resulted 08/19/24 11:45 Sputum Gram Stain - Final Resulted 08/19/24 11:45 Sputum Respiratory Culture - Preliminary Resulted Labs and/or images reviewed: Labs reviewed by me, Image(s) reviewed by me Assessment/Plan Assessment/Plan Impression: -cardiopulmonary arrest -NSTEMI, rule out type 1 -obesity -acute respiratory failure with mechanical ventilation -rule out anoxic encephalopathy -asthma -leukocytosis, rule out sepsis -? sepsis Plan: Events: Patient continues to be sedated. Apparently, the patient did have some ventilator asynchrony with belly breathing. MRI of the brain will be ordered. -start tube feeding -cardiology consultation: Discussed case with Cardiology team. No intervention at this time -continue checking serial troponin, EKG for ST changes -wean off sedation -PUD, DVT prophylaxis -continue antibiotics given Gram-positive cocci in blood -continue full-dose anticoagulation with Lovenox, aspirin -repeat labs, chest x-ray, ABG in a.m. -discussion made with the patient's family were bedside. All questions answered. Total time spent with patient discussing and formulating plan of care: 35 minutes. This medical document was created using an electronic medical record system with [employer] system. Although this document has been carefully reviewed, there may still be some phonetic and typographical errors. These areas are purely typographical due to imperfections of the software programs, and do not reflect any compromise in the patient's medical care. Plan discussed with: Patient, Other (RN) My Orders Orders - SALBINO,SAL PLASTERING SUPERVISOR Procedure Category Date Status Time Mrsa Screen JAJA 08/20/24 In Process 12:40 Abg W/ Co-Ox RT 08/21/24 Logged 06:00 Brain Head Wo Contrast MRI 08/21/24 Verified 07:06 Date of Service: August 21, 2024 Billing Provider: DORON BO NP Common Visit Codes: [id number] CARE 30-74 MIN DORON BO NP August 21, 2024 07:13
[2024-08-21] MEDS ORDERED: Jevity 1.2 Cal/Fiber 1 Liter GT SCH (07:15)
[2024-08-21] MEDS: ASPirin 81 mg TAB PO SCH (09:02)
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
--- NOTE | 2024-08-21 12:44 | DVHSR ---
APPROVED REPORT EXAM: LIMITED Two-dimensional and M-mode echocardiogram with Doppler and color Doppler. Blood Pressure: 135/76 mmHg INDICATION Cardiac Arrest DIMENSIONS LVDd5.5 (3.8-5.7cm)LA (2D)3.8 (1.9-4.0cm)Aortic Root3.6 (2.0-3.7cm) LVDs4.3 (2.5-4.0cm)LA (MM) (1.9-4.0cm)Aortic Cusp Exc1.9 (1.5-2.0cm) EF (%) 45.0 (55-70%)Rt. Atrium3.7 (1.9-4.0cm)Asc. Aorta cm IVSd1.0 (0.7-1.1cm)RV (D) (1.8-2.4cm) PWd0.8 (0.7-1.1cm) Mitral Valve MitralMitral Stenosis E wave0.60m/sMV Mean GR.mmHg A wave1.20m/sMV Peak GR.mmHg E/A ratio0.52D MVAcm2 Aortic Valve Aortic ValveAortic Stenosis V10.80m/Jimbo Mean GR.4mmHg V21.30m/Jimbo Peak GR.7mmHg LVOT Diameter2.3 (1.8-2.4cm)Doppler AVA2.56cm2 Pulmonic Valve V21.00m/s Other Information Quality : Technically LimitedRhythm : Technically limited study due to pt on vent and awake fighting vent. Conclusion Atrial fibrillation. Technically difficult study. Difficult acoustic windows and off axis views. Left ventricular and left atrial enlargement. Valves appear to be structurally normal. EF of 35-40% with anterior and apical hypokinesis. Normal right ventricular function. Unremarkable Doppler. No pericardial effusion masses or vegetations.
[2024-08-21] MEDS: fentaNYL Drip 2500mCg/250mlNS 250 ML IV SCH (14:31)
[2024-08-21] MEDS: ACETAMINOPHEN 650 mg PER 20.3 mL UD GT PRN (15:00)
--- NOTE | 2024-08-21 15:46 | DVHPN2 ---
Progress Note - Dictate Date Seen: August 21, 2024 Medical Necessity Reason Pt with a Central, PICC or Fol: Yes Subjective Patient seen and examined Overnight events reviewed vital signs Vital Sign Date Time Temp Pulse Resp B/P (MAP) Pulse Ox O2 Delivery O2 Flow Rate FiO2 08/21/24 15:05 66 24 144/96 (112) 98 30 08/21/24 15:00 100.6 08/21/24 14:00 Mechanical Ventilator+ Total Intake and Output 08/20/24 08/20/24 08/21/24 15:00 23:00 07:00 Intake Total 121.754 ml 197.187 ml 372.138 ml Output Total 1000 ml 680 ml Balance 121.754 ml -802.813 ml -307.862 ml medications Current Medications Medications Dose Ordered Sig/Noemi Route Start Time Stop Time Status Last Admin Dose Admin Midazolam HCl 50 ml @ 1 mls/hr Q24H IV 08/19/24 12:00 08/21/24 06:15 10 MLS/HR Vancomycin HCl 0 ml @ 0 mls/hr UD IV 08/19/24 14:30 Piperacillin Sod/ Tazobactam Sod 100 ml @ 25 mls/hr Q8H IV 08/19/24 21:00 08/21/24 12:25 25 MLS/HR Docusate Sodium 100 mg BIDPRN PRN PO 08/19/24 14:45 Acetaminophen/ Hydrocodone Bitart 1 tab Q4HP PRN PO 08/19/24 14:45 Hydromorphone HCl 0.5 mg Q4HP PRN IV 08/19/24 14:45 Ondansetron HCl 4 mg Q4HP PRN IV 08/19/24 14:45 Diagnostic Test (Pha) 1 strip Q6HR 08/19/24 18:00 08/21/24 11:49 1 STRIP Insulin Human Regular Q6HR SC 08/19/24 18:00 08/20/24 00:17 2 UNITS Dextrose 50 ml UD PRN IV 08/19/24 14:45 Propofol 100 ml @ 3.13 mls/hr Q24H IV 08/19/24 17:30 08/21/24 06:48 18.779 MLS/HR Levetiracetam 100 ml @ 400 mls/hr BID IV 08/20/24 10:00 08/21/24 09:02 400 MLS/HR Vancomycin HCl 300 ml @ 150 mls/hr Q16H IV 08/20/24 10:00 08/21/24 02:35 150 MLS/HR Norepinephrine Bitartrate 250 ml @ 3.75 mls/hr Q24H IV 08/20/24 01:15 08/20/24 01:35 3.75 MLS/HR Aspirin 81 mg DAILY PO 08/21/24 10:00 08/21/24 09:02 81 MG Enoxaparin Sodium 100 mg Q12HR SC 08/20/24 22:00 08/21/24 09:02 100 MG Atorvastatin Calcium 80 mg HS PO 08/21/24 22:00 Enteral Nutritional Formula 1,000 ml 30ML/HR GT 08/21/24 07:15 Acetaminophen 650 mg Q6HP PRN GT 08/21/24 10:15 08/21/24 15:00 650 MG Fentanyl Citrate 250 ml @ 2.5 mls/hr Q24H IV 08/21/24 14:00 08/21/24 14:31 2.5 MLS/HR laboratory and microbiology Laboratory Tests 08/21/24 03:05 Test 08/21/24 03:05 Range/Units Serum Glucose 122 H 74-106 mg/dL Assessment/Plan *[employer] rounds* Impression Acute hypoxemic respiratory failure S/p cardiac arrest Bacteremia NSTEMI Patient seen and examined in ICU Events On mechanical ventilation S/p intubation PEEP 5, FiO2 35% Labs and imaging reviewed Sputum growing Enterobacter, most likely aspiration GPC in blood, ? Bacteremia ABG reviewed Management Vent support Titrate to maintain sats 90% or above Sedation holiday If patient follows commands, proceed to weaning trial Pressure support 10/03, extubate when ready Okay to use Precedex as needed Continue antibiotics F/u cultures Bronchodilators Monitor renal function Monitor electrolytes Supplement as needed Pressors as needed for hemodynamic support To maintain a mean arterial pressure of 65 mmHg Nutritional support DVT prophylaxis Critical care time 35 minutes Dietary Evaluation Review Comments: 1. Inadequate protein support per current Jevity TF. 2. re- assessment when pt is out of his critical medical condition and has a estimated height available. 3. Advance to cardiac diet when medically feasible. 4. Increase protein support to meet 75% of pt's protein needs for being on vent. Plan discussed with: Other (Rn) ARACELIS GONZALEZ MD August 21, 2024 15:45
--- NOTE | 2024-08-21 16:26 | DVH ---
PROCEDURE: MRI BRAIN HEAD WO CONTRAST INDICATION: Cardiac Arrest, anoxic injury EXAM DATE: 08/21/2024 03:46 PM COMPARISON: None TECHNIQUE: MRI of the brain without intravenous contrast. FINDINGS: Diffusion weighted images of the brain demonstrate no evidence of acute infarction. There is no evidence of acute intracranial hemorrhage, extra-axial collection, mass effect, midline s hift, herniation or hydrocephalus. Mild cerebral atrophy. Mild changes of chronic microvascular ischemic disease. There are no signal abnormalities on the susceptibility weighted sequences. The major vascular flow voids are present. Ethmoid sinus disease. The surrounding soft tissues and osseous structures are unremarkable. IMPRESSION: 1. No evidence of acute infarction, intracranial hemorrhage, mass effect or hydrocephalus. Mild cereb ral atrophy. Mild changes of chronic microvascular ischemic disease. Ethmoid sinus disease. HS:Y
[2024-08-21] MEDS: IPRATROPIUM BROM 0.5 MG/2.5ML INH SOL ONE (20:59)
[2024-08-21] MEDS: ALBUTEROL SULF 2.5 MG/0.5ML(0.5%) NEB SOLN ONE (21:00)
[2024-08-21] MEDS: ALBUTEROL SULF 2.5 MG/0.5ML(0.5%) NEB SOLN NEB PRN (21:02)
[2024-08-21] MEDS: IPRATROPIUM BROM 0.5 MG/2.5ML INH SOL NEB PRN (21:02)
[2024-08-21 21:44] LABS: INR 1.11 (0.9-1.15); Prothrombin Time 11.6 sec (9.3-11.8)
[2024-08-21] MEDS: ATORVASTATIN 20 MG TAB PO SCH (21:48)
--- NOTE | 2024-08-21 23:00 | DVHPN2 ---
Consult Progress Note Subjective Other Systems: Patient was seen and evaluated in follow up in the ICU. Patient is intubated and sedated on ventilator. 30% FiO2. WBC 11.3. MRI brain shows no evidence of acute infarction, intracranial hemorrhage, mass effect or hydrocephalus. There is mild cerebral atrophy, mild changes of chronic microvascular ischemic disease and ethmoid sinus disease. Objective vital signs Vital Sign Date Time Temp Pulse Resp B/P (MAP) Pulse Ox O2 Delivery O2 Flow Rate FiO2 08/21/24 20:21 67 33 163/91 (115) 97 30 08/21/24 18:00 Mechanical Ventilator+ 08/21/24 16:50 100.0 Total Intake and Output 08/20/24 08/20/24 08/21/24 14:59 22:59 06:59 Intake Total 138.844 ml 176.409 ml 279.176 ml Output Total 1000 ml 680 ml Balance 138.844 ml -823.591 ml -400.824 ml medications Current Medications Medications Dose Ordered Sig/Noemi Route Start Time Stop Time Status Last Admin Dose Admin Midazolam HCl 50 ml @ 1 mls/hr Q24H IV 08/19/24 12:00 08/21/24 06:15 10 MLS/HR Vancomycin HCl 0 ml @ 0 mls/hr UD IV 08/19/24 14:30 Piperacillin Sod/ Tazobactam Sod 100 ml @ 25 mls/hr Q8H IV 08/19/24 21:00 08/21/24 12:25 25 MLS/HR Docusate Sodium 100 mg BIDPRN PRN PO 08/19/24 14:45 Acetaminophen/ Hydrocodone Bitart 1 tab Q4HP PRN PO 08/19/24 14:45 Hydromorphone HCl 0.5 mg Q4HP PRN IV 08/19/24 14:45 Ondansetron HCl 4 mg Q4HP PRN IV 08/19/24 14:45 Diagnostic Test (Pha) 1 strip Q6HR 08/19/24 18:00 08/21/24 17:16 1 STRIP Insulin Human Regular Q6HR SC 08/19/24 18:00 08/20/24 00:17 2 UNITS Dextrose 50 ml UD PRN IV 08/19/24 14:45 Propofol 100 ml @ 3.13 mls/hr Q24H IV 08/19/24 17:30 08/21/24 06:48 18.779 MLS/HR Levetiracetam 100 ml @ 400 mls/hr BID IV 08/20/24 10:00 08/21/24 09:02 400 MLS/HR Norepinephrine Bitartrate 250 ml @ 3.75 mls/hr Q24H IV 08/20/24 01:15 08/20/24 01:35 3.75 MLS/HR Aspirin 81 mg DAILY PO 08/21/24 10:00 08/21/24 09:02 81 MG Enoxaparin Sodium 100 mg Q12HR SC 08/20/24 22:00 08/21/24 09:02 100 MG Atorvastatin Calcium 80 mg HS PO 08/21/24 22:00 Enteral Nutritional Formula 1,000 ml 30ML/HR GT 08/21/24 07:15 Acetaminophen 650 mg Q6HP PRN GT 08/21/24 10:15 08/21/24 15:00 650 MG Fentanyl Citrate 250 ml @ 2.5 mls/hr Q24H IV 08/21/24 14:00 08/21/24 14:31 2.5 MLS/HR Albuterol 2.5 mg Q4HPRN PRN NEB 08/21/24 21:00 08/21/24 21:02 2.5 MG Ipratropium [place] 0.5 mg Q4HPRN PRN NEB 08/21/24 21:00 08/21/24 21:02 0.5 MG Vancomycin HCl 200 ml @ 200 mls/hr Q12H IV 08/22/24 06:00 Examination: GENERAL:Abnormal (intubated), LUNGS:Normal, CVS:Normal, ABDOMEN:Normal, NEURO:Abnormal (sedated) laboratory and microbiology Laboratory Tests 08/21/24 03:05 Test 08/21/24 03:05 Range/Units Serum Glucose 122 H 74-106 mg/dL Problem List/Assessment/Plan Problem List/Assessment/Plan Assessment and Plan Cardiac Arrest s/p ROSC. Prolonged QtC. Vfib s/p defibrillation, currently NSR. Elevated trops, likely NSTEMI type II s/p resuscitation, NSTEMI I not ruled out yes. Syncope. History of hypertension. History of asthma. Plan Continued all current supportive medical care. Patient has been seen by Raul Sanders Resident, we have discussed the plan with the patient. Continue with aspirin, lovenox and statins. Avoid Qtc prolonging agents including Haloperidol, quetiapine, olanzapine, Amiodarone, sotalol, dofetilide, procainamide, quinidine, flecainide, Macrolides, fluoroquinolones, ondansetron. Keep mg>2 and K>4. Continue monitoring telemetry. Patient has EKG changes described above and echo showing EF 35 to 40% concerning for ischaemia. MRI brain does not show any changes correlating with anoxic brain injury. I spoke with the patient's daughter and she was explained about the procedure will schedule the patient for [facility]. Will obtain consent for [facility] with coronary angiogram with possible stent placement. Additional plan as per the hospital course. Plan discussed with: Daughter, Other Dietary Evaluation Review Comments: 1. Inadequate protein support per current Jevity TF. 2. re- assessment when pt is out of his critical medical condition and has a estimated height available. 3. Advance to cardiac diet when medically feasible. 4. Increase protein support to meet 75% of pt's protein needs for being on vent. Date of Service: August 21, 2024 Billing Provider: DESIRE BAR MD Cardiology Common Codes: [id number] INP/OBS CARE (High) DESIRE BAR MD August 21, 2024 21:55
[2024-08-21] MEDS: ANGIOMAX 250 MG VIAL IV ONE (23:03)
[2024-08-21] MEDS: LIDOCAINE 2%HCL (LOCAL ANESTH.) INJ 20ML MDV ONE (23:03)
[2024-08-21] MEDS: IODIXANOL 320MG/ML 100ML BTL IV ONE (23:03)
[2024-08-21] MEDS: SODIUM CHL 0.9% 0 ML ONE (23:03)
[2024-08-22] VITALS (106 sets, daily range): BP systolic 83–187; BP diastolic 51–117; PULSE 50–120; RESP 10–27; TEMP 98.9–102.1; O2SAT 91–100
[2024-08-22] MEDS: NITROGLYCERIN 50MG/250ML 250 ML IV ONE (00:01)
[2024-08-22] MEDS: IODIXANOL 320MG/ML 100ML BTL IV ONE (00:02)
--- NOTE | 2024-08-22 00:26 | DVHPN ---
DATE: 08/21/2024 The patient was seen with Dr. Carter and initially the patient was seen by Dr. Melchor. Dr. Melchor wanted to do evaluation before we take the patient to the cardiac ammunition assembly ii laborer. The patient's history is that he came with a cardiac arrest. He had ventricular fibrillation. has been intubated. Discussion done with the nursing staff. Urine output is now getting better. The echo Doppler study also has been reviewed. The ejection fraction of the left ventricle is in the range of 35%. There is an anterior and apical wall hypokinesis noted on the echo Doppler study. The patient had atrial fibrillation. We got a report tonight. The patient's MRI of the brain has been negative. We also got a report of the chest x-ray with cardiomegaly and congestive heart failure. I also called the patient's daughter, Lashonda and discussion done with her and her number is [phone]. I explained to her about the case, about onset of the problem, progression in the hospital and we need to get the patient to cardiac ammunition assembly ii laborer tonight. This decision, I made it tonight because I am information systems security manager today and Dr. Carter, however received and brought it to my attention during this late evening that the patient is now getting more awake and is able to move the arm, he is trying to pull out his tube, so clinically, it seems that the patient's neuro status is getting better, so the decision has been made tonight to take the patient to the ammunition assembly ii laborer and do coronary angiography and possible intervention as needed. Condition is still critical. The prognosis is unpredictable. The outcome of the angiography with intervention cannot be predicted in this type of case, although it is considered to be a high-risk case and all above have been discussed with the patient's daughter, Lashonda, but I think that because of the low ejection fraction, severe hypokinesis of the apical anterior wall, elevation of troponin, history of cardiac arrest and ventricular fibrillation, I think we should go ahead and do the angiography, as the patient's neurological status is now getting better. Padmaja Servin MD MP/ANEL/NOLAN TID: [id number] RECEIPT: [id number] [facility]ITAL[facility]
[2024-08-22] MEDS: MIDAZOLAM HCL 2MG/2ML 2ml VIAL (1mg/ml) ONE (00:34)
[2024-08-22 03:57] LABS: Basophils # (auto) 0.1 10 ^3/uL (0-0.2); Basophils % (auto) 0.6 % (0.0-2.0); Eosinophils # (auto) 0 10 ^3/uL (0-0.8); Eosinophils % (auto) 0.2 % (0.0-7.0); Hematocrit 40.1 % (41.0-53.0); Hemoglobin 13.5 g/dL (13.5-17.5); Lymphocytes # (auto) 1.3 10 ^3/uL (0.4-5.4); Lymphocytes % (auto) 14.7 % (10.0-50.0); Mean Corpuscular Hemoglobin 30.9 pg (28.0-32.0); Mean Corpuscular Hgb Conc. 33.7 g/dL (32.0-36.0); Mean Corpuscular Volume 91.6 fL (80.0-100.0); Monocytes # (auto) 0.8 10 ^3/uL (0-1.3); Monocytes % (auto) 8.9 % (0.0-12.0); Neutrophils # (auto) 6.6 10 ^3/uL (1.6-8.6); Neutrophils % (auto) 75.6 % (37.0-80.0); Platelet Count (auto) 175 10^3/uL (140-450); Red Blood Cells 4.38 10^6/uL (4.5-5.90); Red Cell Distribution Width 14.3 % (11.8-14.3); White Blood Cell 8.8 10^3/uL (4.4-10.8)
[2024-08-22 04:10] LABS: Alkaline Phosphatase 68 U/L (46-116); Anion Gap 10 (5-15); Calcium 9.2 mg/dL (8.7-10.4); Carbon Dioxide 24 mmol/L (20-31); Potassium 3.8 mmol/L (3.5-5.1)
[2024-08-22 04:11] LABS: Albumin 4.2 g/dL (3.2-4.8); BUN/Creatinine Ratio 16.7 (10.0-20.0); Blood Urea Nitrogen 14 mg/dL (9-23); Total Protein 6.7 g/dL (5.7-8.2)
[2024-08-22 04:13] LABS: Bilirubin, Total 0.8 mg/dL (0.2-1.0)
[2024-08-22 04:16] LABS: Alanine Aminotransferase 141 U/L (7-40); Aspartate Aminotransferase 109 U/L (13-40); Chloride 111 mmol/L (98-107); Glucose 111 mg/dL (74-106); Sodium 145 mmol/L (136-145)
[2024-08-22] MEDS: VANCOMYCIN 1GM/200ML PM 200 ML IV SCH (05:55)
--- NOTE | 2024-08-22 06:23 | DVH ---
EXAM: XY CHEST PORTABLE Indication: intubated Technique: Single frontal view of the chest was obtained Comparison: XY CHEST PORTABLE on DOS: 08/21/24, XY CHEST PORTABLE on DOS: 08/20/24, XY CHEST PORTABLE o n DOS: 08/19/24 FINDINGS: Lines and Tubes: Endotracheal tube projects 5 cm above the sandra. Enteric tube tip projects over ex pected region stomach. Lungs: Mild pulmonary vascular congestion. Pleura: No effusion. No pneumothorax. Cardiomediastinal contours: Unremarkable Bones: No acute osseous abnormality. IMPRESSION: Pulmonary vascular congestion.
[2024-08-22 07:59] LABS: Base Excess -5.2 mmol/L (-2.0-3.0)
--- NOTE | 2024-08-22 13:55 | DVHPN2 ---
Subjective The patient is seen and examined at bedside. Remained intubated. Daughters at bedside. Reviewed: Care Plan, H&P, Labs, Medications Changes from previous H/P or p: No Changes General: Per HPI Objective Vitals Vital Signs Date Time Temp Pulse Resp B/P (MAP) Pulse Ox O2 Delivery O2 Flow Rate FiO2 08/22/24 13:00 54 24 109/72 (84) 98 08/22/24 12:00 98.9 98.9 08/22/24 12:00 45 08/22/24 12:00 Mechanical Ventilator+ Intake/Output Intake and Output 08/22/24 07:00 Intake Total 1432.670 ml Output Total 1050 ml Balance 382.670 ml Intake Oral 115 ml IV Total 1317.670 ml Output Urine Total 1050 ml Stool Total 0 ml General Appearance: mild distress, Other (Intubated and sedated) Lungs: Clear to auscultation, Normal air movement, Other (Mechanical ventilation) Cardiovascular: Normal S1, Normal S2, Other (ST depression noted) Abdomen: Normal bowel sounds, Soft, No tenderness Genitourinary: No Apparent Abnormalities (Ferrer catheter) Musculoskeletal: Other (No motor movement) Neuro: Other (Positive cough and gag with noxious stimuli) Skin: Dry, Intact Psych/Mental Status: Other (Unable to assess) Medications Current Medications Medications Dose Ordered Sig/Noemi Route Start Time Stop Time Status Last Admin Dose Admin Midazolam HCl 50 ml @ 1 mls/hr Q24H IV 08/19/24 12:00 08/21/24 06:15 10 MLS/HR Vancomycin HCl 0 ml @ 0 mls/hr UD IV 08/19/24 14:30 Piperacillin Sod/ Tazobactam Sod 100 ml @ 25 mls/hr Q8H IV 08/19/24 21:00 08/22/24 12:36 25 MLS/HR Docusate Sodium 100 mg BIDPRN PRN PO 08/19/24 14:45 Acetaminophen/ Hydrocodone Bitart 1 tab Q4HP PRN PO 08/19/24 14:45 Hydromorphone HCl 0.5 mg Q4HP PRN IV 08/19/24 14:45 Ondansetron HCl 4 mg Q4HP PRN IV 08/19/24 14:45 Diagnostic Test (Pha) 1 strip Q6HR 08/19/24 18:00 08/22/24 11:36 1 STRIP Insulin Human Regular Q6HR SC 08/19/24 18:00 08/20/24 00:17 2 UNITS Dextrose 50 ml UD PRN IV 08/19/24 14:45 Propofol 100 ml @ 3.13 mls/hr Q24H IV 08/19/24 17:30 08/22/24 11:38 18.779 MLS/HR Levetiracetam 100 ml @ 400 mls/hr BID IV 08/20/24 10:00 08/22/24 10:19 400 MLS/HR Norepinephrine Bitartrate 250 ml @ 3.75 mls/hr Q24H IV 08/20/24 01:15 08/20/24 01:35 3.75 MLS/HR Aspirin 81 mg DAILY PO 08/21/24 10:00 08/22/24 10:19 81 MG Enoxaparin Sodium 100 mg Q12HR SC 08/20/24 22:00 08/22/24 10:19 100 MG Atorvastatin Calcium 80 mg HS PO 08/21/24 22:00 08/21/24 21:48 80 MG Enteral Nutritional Formula 1,000 ml 30ML/HR GT 08/21/24 07:15 Acetaminophen 650 mg Q6HP PRN GT 08/21/24 10:15 08/22/24 03:53 650 MG Fentanyl Citrate 250 ml @ 2.5 mls/hr Q24H IV 08/21/24 14:00 08/22/24 12:36 25 MLS/HR Albuterol 2.5 mg Q4HPRN PRN NEB 08/21/24 21:00 08/22/24 06:11 2.5 MG Ipratropium [place] 0.5 mg Q4HPRN PRN NEB 08/21/24 21:00 08/22/24 06:10 0.5 MG Vancomycin HCl 200 ml @ 200 mls/hr Q12H IV 08/22/24 06:00 08/22/24 05:55 200 MLS/HR Laboratory Results Laboratory Tests 08/22/24 03:15 Chemistry Test 08/22/24 03:15 Albumin 4.2 g/dL (3.2-4.8) Calcium Level 9.2 mg/dL (8.7-10.4) Magnesium Level 2.0 mg/dL (1.6-2.6) Total Protein 6.7 g/dL (5.7-8.2) Coagulation Test 08/21/24 21:22 Prothrombin Time 11.6 sec (9.3-11.8) Prothrombin Time INR 1.11 (0.9-1.15) LFT Test 08/22/24 03:15 Alanine Aminotransferase (ALT) 141 U/L (7-40) H Alkaline Phosphatase 68 U/L (46-116) Aspartate Amino Transferase (AST) 109 U/L (13-40) H Total Bilirubin 0.8 mg/dL (0.2-1.0) Urinalysis Test 08/19/24 13:10 Urine Color Yellow (Yellow) Urine Clarity Turbid (Clear) H Urine pH 6.0 (5.0-9.0) Urine Specific [place] 1.018 (1.001-1.035) Urine Protein 2+ (Negative) H Urine Ketones Negative (Negative) Urine Blood 2+ /uL (Negative) H Urine Nitrite Negative (Negative) Urine Bilirubin Negative (Negative) Urine Urobilinogen Normal mg/dL (Negative) Urine Leukocyte Esterase Negative /uL (Negative) Urine RBC 12 /hpf (0 - 3) Urine Microscopic WBC 7 /HPF (0-3) H Urine Squamous Epithelial Cells Mod /hpf (<5) Urine Bacteria Few /hpf (None Seen) H Urine Mucus Few (None Seen) Urine Creatinine 108.36 mg/dL (30.0-125.0) Urine Sodium 51 mmol/L (40-220) Urine Glucose 1+ mg/dL (Normal) H Blood Gas Results Test 08/22/24 07:26 Arterial Blood pH 7.354 (7.350-7.450) FiO2 % 45.0 Microbiology Microbiology Date/Time Source Procedure Growth Status 08/20/24 12:40 Nose MRSA Screen - Final Complete 08/19/24 13:10 Voided Urine Urine Culture - Final Complete 08/19/24 12:30 Blood Blood Culture - Preliminary Resulted 08/19/24 11:45 Sputum Gram Stain - Final Complete 08/19/24 11:45 Respiratory Culture - Final Enterobacter aerogenes Complete Labs and/or images reviewed: Labs reviewed by me Assessment/Plan Assessment/Plan -cardiopulmonary arrest -NSTEMI, rule out type 1 -obesity -acute respiratory failure with mechanical ventilation -rule out anoxic encephalopathy -asthma -leukocytosis, rule out sepsis -? sepsis Plan: -The patient continues to be sedated. Apparently, the patient did have some ventilator asynchrony with belly breathing. MRI of the brain will be ordered. -continuing tube feeding -appreciate cardiology input No intervention at this time -continue checking serial troponin, EKG for ST changes -wean off sedation -PUD, DVT prophylaxis -continue antibiotics given Gram-positive cocci in blood -continue full-dose anticoagulation with Lovenox, aspirin -repeat labs, chest x-ray, ABG in a.m. -per Dr. Servin, daytime caregiver, he recommend to transfer the patient to higher level of care as [facility]. Daughter wants the patient to transfer to [facility] because she works at [employer]. She is working on accepting physician. -discussion made with the patient's family were bedside. All questions answered. Critical case pain for this case is 37 minute This medical document was created using an electronic medical record system with [employer] direct computerized dictation system. Although this document has been carefully reviewed, there may still be some phonetic and typographical errors. These areas are purely typographical due to imperfections of the software programs, and do not reflect any compromise in the patient's medical care. Plan discussed with: Daughter, Other (RN) Date of Service: August 22, 2024 Billing Provider: JOEL HAUSER MD Common Visit Codes: [id number] CARE 30-74 MIN JOEL HAUSER MD August 22, 2024 13:55
[2024-08-22 14:16] LABS: LDL Cholesterol 65 mg/dL (< 100); Triglycerides 151 mg/dL (< 150)
[2024-08-22 14:17] LABS: Cholesterol 108 mg/dL (< 200); HDL Cholesterol 24 mg/dL (40-59)
--- NOTE | 2024-08-22 14:21 | DVHPN2 ---
Consult Progress Note Date Seen: August 22, 2024 Subjective Other Systems: No overnight cardiac events reported Objective vital signs Vital Sign Date Time Temp Pulse Resp B/P (MAP) Pulse Ox O2 Delivery O2 Flow Rate FiO2 08/22/24 13:00 54 24 109/72 (84) 98 08/22/24 12:00 98.9 98.9 08/22/24 12:00 45 08/22/24 12:00 Mechanical Ventilator+ Total Intake and Output 08/21/24 08/21/24 08/22/24 15:00 23:00 07:00 Intake Total 241 ml 525.0 ml 666.670 ml Output Total 400 ml 650 ml Balance 241 ml 125.0 ml 16.670 ml medications Current Medications Medications Dose Ordered Sig/Noemi Route Start Time Stop Time Status Last Admin Dose Admin Midazolam HCl 50 ml @ 1 mls/hr Q24H IV 08/19/24 12:00 08/21/24 06:15 10 MLS/HR Vancomycin HCl 0 ml @ 0 mls/hr UD IV 08/19/24 14:30 Piperacillin Sod/ Tazobactam Sod 100 ml @ 25 mls/hr Q8H IV 08/19/24 21:00 08/22/24 12:36 25 MLS/HR Docusate Sodium 100 mg BIDPRN PRN PO 08/19/24 14:45 Acetaminophen/ Hydrocodone Bitart 1 tab Q4HP PRN PO 08/19/24 14:45 Hydromorphone HCl 0.5 mg Q4HP PRN IV 08/19/24 14:45 Ondansetron HCl 4 mg Q4HP PRN IV 08/19/24 14:45 Diagnostic Test (Pha) 1 strip Q6HR 08/19/24 18:00 08/22/24 11:36 1 STRIP Insulin Human Regular Q6HR SC 08/19/24 18:00 08/20/24 00:17 2 UNITS Dextrose 50 ml UD PRN IV 08/19/24 14:45 Propofol 100 ml @ 3.13 mls/hr Q24H IV 08/19/24 17:30 08/22/24 11:38 18.779 MLS/HR Levetiracetam 100 ml @ 400 mls/hr BID IV 08/20/24 10:00 08/22/24 10:19 400 MLS/HR Norepinephrine Bitartrate 250 ml @ 3.75 mls/hr Q24H IV 08/20/24 01:15 08/20/24 01:35 3.75 MLS/HR Aspirin 81 mg DAILY PO 08/21/24 10:00 08/22/24 10:19 81 MG Enoxaparin Sodium 100 mg Q12HR SC 08/20/24 22:00 08/22/24 10:19 100 MG Atorvastatin Calcium 80 mg HS PO 08/21/24 22:00 08/21/24 21:48 80 MG Enteral Nutritional Formula 1,000 ml 30ML/HR GT 08/21/24 07:15 Acetaminophen 650 mg Q6HP PRN GT 08/21/24 10:15 08/22/24 03:53 650 MG Fentanyl Citrate 250 ml @ 2.5 mls/hr Q24H IV 08/21/24 14:00 08/22/24 12:36 25 MLS/HR Albuterol 2.5 mg Q4HPRN PRN NEB 08/21/24 21:00 08/22/24 06:11 2.5 MG Ipratropium [place] 0.5 mg Q4HPRN PRN NEB 08/21/24 21:00 08/22/24 06:10 0.5 MG Vancomycin HCl 200 ml @ 200 mls/hr Q12H IV 08/22/24 06:00 08/22/24 05:55 200 MLS/HR Examination: LUNGS:Abnormal (Endotracheally intubated with 35% FiO2), CVS:Normal (Sinus bradycardia with ST depression. 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 Melchor) The patient underwent a cardiac catheterization and coronary angiogram revealing multivessel disease including the LAD, RCA, and LCx (report pending at this time). Spoke with Dr. Servin with recommendation to transfer to [facility] for CABG once brain insult has been ruled out. In the meantime, continue single antiplatelet therapy with ASA (avoid Plavix/Brilinta) and initiate heparin drip per pharmacy protocol. A transthoracic echocardiogram revealed an EF of 35-40%. Initiate GDMT for CHF when appropriate. Avoid QTc prolonging agents including Haloperidol, quetiapine, olanzapine, amiodarone, sotalol, dofetilide, procainamide, quinidine, flecainide, Macrolides, fluoroquinolones, and/or ondansetron. Replete electrolytes as necessary including K>4 and mg >2. Monitor ECG changes closely and notify. Lipid panel, HgbA1C and TSH levels pending. Thank you for allowing us to participate in this patient's care. Please call if you have any questions or concerns. Of note: Dr. Servin states patient will be accepted at [facility] by Dr. De Anda who is aware of the case once brain anoxia has been ruled out. Spoke with daughters at bedside with one of them requesting transfer to [facility] as she works there and have accepting physicians. We will defer to primary care team for transfer decision and further communication with family. Critical care time: 40 min. This medical document was created using an electronic medical record system with voice recognition software and computerized dictation system. Although this document has been carefully reviewed, there might still be some phonetic and typographical errors. Occasional wrong-word or ``sound-alike substitutions may have occurred due to the inherent limitations of voice recognition software. These areas are purely typographical due to imperfections of the software programs and do not reflect any compromise in the patient's medical care. Please read the chart carefully and recognize, using context, where these substitutions have occurred. Plan discussed with: Daughter, Other (Daughters x 2 and primary RN) Dietary Evaluation Review Comments: 1. Inadequate protein support per current Jevity TF. 2. re- assessment when pt is out of his critical medical condition and has a estimated height available. 3. Advance to cardiac diet when medically feasible. 4. Increase protein support to meet 75% of pt's protein needs for being on vent. Date of Service: August 22, 2024 Billing Provider: GAETANO MARTINO Cardiology Common Codes: [id number]-LYSPFOAN CARE 30-74 MIN GAETANO MARTINO August 22, 2024 14:21
[2024-08-22] MEDS: FUROSEMIDE 20 MG/2 ML VIAL IV ONE (14:50)
[2024-08-22] MEDS: NOREPINEPHRINE 8 MG/250ML KIT 250 ML IV SCH (15:45)
[2024-08-22 16:32] LABS: INR 1.11 (0.9-1.15); Partial Thromboplastin Time 30.9 SEC (24.5-34.5); Prothrombin Time 11.6 sec (9.3-11.8)
--- NOTE | 2024-08-22 17:38 | DVHPN2 ---
Progress Note - Dictate Date Seen: August 22, 2024 Medical Necessity Reason Pt with a Central, PICC or Fol: Yes The following are medically ne: Central Line, Ferrer Catheter Subjective Patient seen and examined Overnight events reviewed vital signs Vital Sign Date Time Temp Pulse Resp B/P (MAP) Pulse Ox O2 Delivery O2 Flow Rate FiO2 08/22/24 17:30 137/88 08/22/24 16:02 56 24 96 35 08/22/24 14:21 Mechanical Ventilator+ 08/22/24 12:00 98.9 98.9 Total Intake and Output 08/21/24 08/21/24 08/22/24 15:00 23:00 07:00 Intake Total 241 ml 525.0 ml 666.670 ml Output Total 400 ml 650 ml Balance 241 ml 125.0 ml 16.670 ml medications Current Medications Medications Dose Ordered Sig/Noemi Route Start Time Stop Time Status Last Admin Dose Admin Midazolam HCl 50 ml @ 1 mls/hr Q24H IV 08/19/24 12:00 08/21/24 06:15 10 MLS/HR Vancomycin HCl 0 ml @ 0 mls/hr UD IV 08/19/24 14:30 Piperacillin Sod/ Tazobactam Sod 100 ml @ 25 mls/hr Q8H IV 08/19/24 21:00 08/22/24 12:36 25 MLS/HR Docusate Sodium 100 mg BIDPRN PRN PO 08/19/24 14:45 Acetaminophen/ Hydrocodone Bitart 1 tab Q4HP PRN PO 08/19/24 14:45 Hydromorphone HCl 0.5 mg Q4HP PRN IV 08/19/24 14:45 Ondansetron HCl 4 mg Q4HP PRN IV 08/19/24 14:45 Diagnostic Test (Pha) 1 strip Q6HR 08/19/24 18:00 08/22/24 11:36 1 STRIP Insulin Human Regular Q6HR SC 08/19/24 18:00 08/20/24 00:17 2 UNITS Dextrose 50 ml UD PRN IV 08/19/24 14:45 Propofol 100 ml @ 3.13 mls/hr Q24H IV 08/19/24 17:30 08/22/24 11:38 18.779 MLS/HR Levetiracetam 100 ml @ 400 mls/hr BID IV 08/20/24 10:00 08/22/24 10:19 400 MLS/HR Aspirin 81 mg DAILY PO 08/21/24 10:00 08/22/24 10:19 81 MG Atorvastatin Calcium 80 mg HS PO 08/21/24 22:00 08/21/24 21:48 80 MG Enteral Nutritional Formula 1,000 ml 30ML/HR GT 08/21/24 07:15 Acetaminophen 650 mg Q6HP PRN GT 08/21/24 10:15 08/22/24 03:53 650 MG Fentanyl Citrate 250 ml @ 2.5 mls/hr Q24H IV 08/21/24 14:00 08/22/24 12:36 25 MLS/HR Albuterol 2.5 mg Q4HPRN PRN NEB 08/21/24 21:00 08/22/24 06:11 2.5 MG Ipratropium [place] 0.5 mg Q4HPRN PRN NEB 08/21/24 21:00 08/22/24 06:10 0.5 MG Vancomycin HCl 200 ml @ 200 mls/hr Q12H IV 08/22/24 06:00 08/22/24 05:55 200 MLS/HR Heparin Sodium/ Dextrose 250 ml @ 10 mls/hr Q24H IV 08/22/24 20:00 Furosemide 20 mg DAILY IV 08/23/24 10:00 Norepinephrine Bitartrate 250 ml @ 1.875 mls/ hr Q24H IV 08/22/24 15:45 laboratory and microbiology Laboratory Tests 08/22/24 03:15 Test 08/22/24 03:15 Range/Units Serum Glucose 111 H 74-106 mg/dL Assessment/Plan *Brick Mason rounds* Impression Acute hypoxemic respiratory failure S/p cardiac arrest Bacteremia NSTEMI Patient seen and examined in ICU Events On mechanical ventilation S/p cardiac arrest PEEP 5, FiO2 35% LHC yesterday Found to have multivessel disease not amenable to PCI Labs and imaging reviewed ABG reviewed Management Vent support Titrate to maintain sats 90% or above Sedation holiday If patient follows commands, proceed to weaning trial Pressure support 10/03, extubate when ready Okay to use Precedex as needed Continue antibiotics F/u cultures Bronchodilators Monitor renal function Monitor electrolytes Supplement as needed Pressors as needed for hemodynamic support To maintain a mean arterial pressure of 65 mmHg Nutritional support May require transfer to [facility] DVT prophylaxis Critical care time 35 minutes Dietary Evaluation Review Comments: 1. Inadequate protein support per current Jevity TF. 2. re- assessment when pt is out of his critical medical condition and has a estimated height available. 3. Advance to cardiac diet when medically feasible. 4. Increase protein support to meet 75% of pt's protein needs for being on vent. Plan discussed with: Other (Rn) ARACELIS GONZALEZ MD August 22, 2024 17:37
[2024-08-22] MEDS: HEPARIN DRIP/D5W 100UNITS/ML 250 ML IV SCH (20:00)
[2024-08-23] VITALS (74 sets, daily range): BP systolic 82–174; BP diastolic 46–106; PULSE 52–95; RESP 9–25; TEMP 98.5–101; O2SAT 92–100
[2024-08-23 02:33] LABS: INR 1.14 (0.9-1.15); Partial Thromboplastin Time 35.6 SEC (24.5-34.5); Prothrombin Time 11.9 sec (9.3-11.8)
[2024-08-23] MEDS ORDERED: HEPARIN DRIP/D5W 100UNITS/ML 250 ML IV SCH (03:15)
[2024-08-23] MEDS: HEPARIN SODIUM (PORCINE) 5000 UNITS/ML 1ML VIAL IV ONE (03:35)
[2024-08-23] MEDS: HEPARIN DRIP/D5W 100UNITS/ML 250 ML IV SCH (03:44)
[2024-08-23 04:00] LABS: Basophils # (auto) 0.1 10 ^3/uL (0-0.2); Basophils % (auto) 0.7 % (0.0-2.0); Eosinophils # (auto) 0.1 10 ^3/uL (0-0.8); Hematocrit 36.7 % (41.0-53.0); Hemoglobin 12.6 g/dL (13.5-17.5); Lymphocytes # (auto) 2.2 10 ^3/uL (0.4-5.4); Mean Corpuscular Hemoglobin 32.2 pg (28.0-32.0); Mean Corpuscular Hgb Conc. 34.3 g/dL (32.0-36.0); Mean Corpuscular Volume 93.8 fL (80.0-100.0); Monocytes # (auto) 0.8 10 ^3/uL (0-1.3); Monocytes % (auto) 8.6 % (0.0-12.0); Neutrophils # (auto) 6.4 10 ^3/uL (1.6-8.6); Neutrophils % (auto) 66.7 % (37.0-80.0); Platelet Count (auto) 199 10^3/uL (140-450); Red Blood Cells 3.92 10^6/uL (4.5-5.90); Red Cell Distribution Width 14.4 % (11.8-14.3); White Blood Cell 9.6 10^3/uL (4.4-10.8)
[2024-08-23 04:04] LABS: Albumin 3.8 g/dL (3.2-4.8); Alkaline Phosphatase 69 U/L (46-116); Anion Gap 14 (5-15); BUN/Creatinine Ratio 13.4 (10.0-20.0); Blood Urea Nitrogen 13 mg/dL (9-23); Magnesium 2.1 mg/dL (1.6-2.6); Sodium 143 mmol/L (136-145); Total Protein 6.1 g/dL (5.7-8.2)
[2024-08-23 04:35] LABS: Alanine Aminotransferase 106 U/L (7-40); Aspartate Aminotransferase 96 U/L (13-40); Calcium 8.7 mg/dL (8.7-10.4); Carbon Dioxide 19 mmol/L (20-31); Chloride 110 mmol/L (98-107); Glucose 119 mg/dL (74-106); Potassium 3.3 mmol/L (3.5-5.1)
[2024-08-23] MEDS: POTASSIUM CHL 20MEQ/100ML 100 ML IV ONE (05:58)
[2024-08-23 07:23] LABS: Base Excess -5.5 mmol/L (-2.0-3.0)
[2024-08-23] MEDS: FUROSEMIDE 20 MG/2 ML VIAL IV SCH (10:12)
[2024-08-23] MEDS: POTASSIUM CHL 20MEQ/100ML 100 ML IV SCH (10:13)
--- NOTE | 2024-08-23 10:27 | DVHPN2 ---
Progress Note - Dictate Date Seen: August 23, 2024 Medical Necessity Reason Pt with a Central, PICC or Fol: Yes The following are medically ne: Central Line, Ferrer Catheter Subjective Patient seen and examined Overnight events reviewed vital signs Vital Sign Date Time Temp Pulse Resp B/P (MAP) Pulse Ox O2 Delivery O2 Flow Rate FiO2 08/23/24 10:12 107/60 08/23/24 08:00 60 24 92 Mechanical Ventilator+ 35 35 08/23/24 04:00 98.5 98.5 Total Intake and Output 08/22/24 08/22/24 08/23/24 15:00 23:00 07:00 Intake Total 620.202 ml 774.384 ml 810.001 ml Output Total 1050 ml 400 ml Balance 620.202 ml -275.616 ml 410.001 ml medications Current Medications Medications Dose Ordered Sig/Noemi Route Start Time Stop Time Status Last Admin Dose Admin Midazolam HCl 50 ml @ 1 mls/hr Q24H IV 08/19/24 12:00 08/21/24 06:15 10 MLS/HR Vancomycin HCl 0 ml @ 0 mls/hr UD IV 08/19/24 14:30 Piperacillin Sod/ Tazobactam Sod 100 ml @ 25 mls/hr Q8H IV 08/19/24 21:00 08/23/24 04:30 25 MLS/HR Docusate Sodium 100 mg BIDPRN PRN PO 08/19/24 14:45 Acetaminophen/ Hydrocodone Bitart 1 tab Q4HP PRN PO 08/19/24 14:45 Hydromorphone HCl 0.5 mg Q4HP PRN IV 08/19/24 14:45 Ondansetron HCl 4 mg Q4HP PRN IV 08/19/24 14:45 Diagnostic Test (Pha) 1 strip Q6HR 08/19/24 18:00 08/23/24 05:49 1 STRIP Insulin Human Regular Q6HR SC 08/19/24 18:00 08/20/24 00:17 2 UNITS Dextrose 50 ml UD PRN IV 08/19/24 14:45 Propofol 100 ml @ 3.13 mls/hr Q24H IV 08/19/24 17:30 08/23/24 06:02 9.389 MLS/HR Levetiracetam 100 ml @ 400 mls/hr BID IV 08/20/24 10:00 08/23/24 10:12 400 MLS/HR Aspirin 81 mg DAILY PO 08/21/24 10:00 08/23/24 10:12 81 MG Atorvastatin Calcium 80 mg HS PO 08/21/24 22:00 08/22/24 21:35 80 MG Enteral Nutritional Formula 1,000 ml 30ML/HR GT 08/21/24 07:15 Acetaminophen 650 mg Q6HP PRN GT 08/21/24 10:15 08/22/24 23:11 650 MG Fentanyl Citrate 250 ml @ 2.5 mls/hr Q24H IV 08/21/24 14:00 08/23/24 00:18 17.5 MLS/HR Albuterol 2.5 mg Q4HPRN PRN NEB 08/21/24 21:00 08/23/24 09:01 2.5 MG Ipratropium [place] 0.5 mg Q4HPRN PRN NEB 08/21/24 21:00 08/23/24 09:00 0.5 MG Vancomycin HCl 200 ml @ 200 mls/hr Q12H IV 08/22/24 06:00 08/23/24 05:49 200 MLS/HR Furosemide 20 mg DAILY IV 08/23/24 10:00 08/23/24 10:12 20 MG Norepinephrine Bitartrate 250 ml @ 1.875 mls/ hr Q24H IV 08/22/24 15:45 Heparin Sodium/ Dextrose 250 ml @ 13 mls/hr [id number] IV 08/23/24 03:15 08/23/24 03:44 13 MLS/HR Potassium Chloride 100 ml @ 50 mls/hr Q2H IV 08/23/24 09:15 08/23/24 13:14 08/23/24 10:13 50 MLS/HR laboratory and microbiology Laboratory Tests 08/23/24 03:02 Test 08/23/24 03:02 Range/Units Serum Glucose 119 H 74-106 mg/dL Assessment/Plan *[employer]ified [employer] rounds* Impression Acute hypoxemic respiratory failure S/p cardiac arrest Bacteremia NSTEMI Patient seen and examined in ICU Events On mechanical ventilation S/p cardiac arrest PEEP 5, FiO2 35% LHC yesterday Found to have multivessel disease not amenable to PCI Labs and imaging reviewed ABG reviewed Management Vent support Titrate to maintain sats 90% or above Sedation holiday If patient follows commands, proceed to weaning trial Pressure support 10/03, extubate when ready Okay to use Precedex as needed Continue antibiotics F/u cultures Bronchodilators Monitor renal function Monitor electrolytes Supplement as needed Pressors as needed for hemodynamic support To maintain a mean arterial pressure of 65 mmHg Nutritional support May require transfer to [facility] for CABG DVT prophylaxis Critical care time 35 minutes Dietary Evaluation Review Comments: 1. Inadequate protein support per current Jevity TF. 2. re- assessment when pt is out of his critical medical condition and has a estimated height available. 3. Advance to cardiac diet when medically feasible. 4. Increase protein support to meet 75% of pt's protein needs for being on vent. Plan discussed with: Other (Rn) ARACELIS GONZALEZ MD August 23, 2024 10:27
[2024-08-23 10:34] LABS: INR 1.16 (0.9-1.15); Partial Thromboplastin Time 54.2 SEC (24.5-34.5); Prothrombin Time 12.1 sec (9.3-11.8)
--- NOTE | 2024-08-23 13:12 | DVHPN2 ---
Subjective The patient is seen and examined at bedside. Remained intubated. Daughters at bedside. Reviewed: Care Plan, H&P, Labs, Medications General: Per HPI Objective Vitals Vital Signs Date Time Temp Pulse Resp B/P (MAP) Pulse Ox O2 Delivery O2 Flow Rate FiO2 08/23/24 11:30 55 24 109/66 (80) 96 08/23/24 10:00 30 08/23/24 10:00 Mechanical Ventilator+ 08/23/24 08:00 99.0 99.0 Intake/Output Intake and Output 08/23/24 07:00 Intake Total 2204.587 ml Output Total 1450 ml Balance 754.587 ml Intake Oral 60 ml IV Total 1912.587 ml Tube Feeding 232 ml Output Urine Total 1450 ml Stool Total 0 ml General Appearance: mild distress, Other (Intubated and sedated) Lungs: Clear to auscultation, Normal air movement, Other (Mechanical ventilation) Cardiovascular: Normal S1, Normal S2, Other (ST depression noted) Abdomen: Normal bowel sounds, Soft, No tenderness Genitourinary: No Apparent Abnormalities (Ferrer catheter) Musculoskeletal: Other (No motor movement) Neuro: Other (Positive cough and gag with noxious stimuli) Skin: Dry, Intact Psych/Mental Status: Other (Unable to assess) Medications Current Medications Medications Dose Ordered Sig/Noemi Route Start Time Stop Time Status Last Admin Dose Admin Midazolam HCl 50 ml @ 1 mls/hr Q24H IV 08/19/24 12:00 08/21/24 06:15 10 MLS/HR Vancomycin HCl 0 ml @ 0 mls/hr UD IV 08/19/24 14:30 Piperacillin Sod/ Tazobactam Sod 100 ml @ 25 mls/hr Q8H IV 08/19/24 21:00 08/23/24 04:30 25 MLS/HR Docusate Sodium 100 mg BIDPRN PRN PO 08/19/24 14:45 Acetaminophen/ Hydrocodone Bitart 1 tab Q4HP PRN PO 08/19/24 14:45 Hydromorphone HCl 0.5 mg Q4HP PRN IV 08/19/24 14:45 Ondansetron HCl 4 mg Q4HP PRN IV 08/19/24 14:45 Diagnostic Test (Pha) 1 strip Q6HR 08/19/24 18:00 08/23/24 12:32 1 STRIP Insulin Human Regular Q6HR SC 08/19/24 18:00 08/20/24 00:17 2 UNITS Dextrose 50 ml UD PRN IV 08/19/24 14:45 Propofol 100 ml @ 3.13 mls/hr Q24H IV 08/19/24 17:30 08/23/24 06:02 9.389 MLS/HR Levetiracetam 100 ml @ 400 mls/hr BID IV 08/20/24 10:00 08/23/24 10:12 400 MLS/HR Aspirin 81 mg DAILY PO 08/21/24 10:00 08/23/24 10:12 81 MG Atorvastatin Calcium 80 mg HS PO 08/21/24 22:00 08/22/24 21:35 80 MG Enteral Nutritional Formula 1,000 ml 30ML/HR GT 08/21/24 07:15 Acetaminophen 650 mg Q6HP PRN GT 08/21/24 10:15 08/22/24 23:11 650 MG Fentanyl Citrate 250 ml @ 2.5 mls/hr Q24H IV 08/21/24 14:00 08/23/24 11:02 22.5 MLS/HR Albuterol 2.5 mg Q4HPRN PRN NEB 08/21/24 21:00 08/23/24 09:01 2.5 MG Ipratropium [place] 0.5 mg Q4HPRN PRN NEB 08/21/24 21:00 08/23/24 09:00 0.5 MG Vancomycin HCl 200 ml @ 200 mls/hr Q12H IV 08/22/24 06:00 08/23/24 05:49 200 MLS/HR Furosemide 20 mg DAILY IV 08/23/24 10:00 08/23/24 10:12 20 MG Norepinephrine Bitartrate 250 ml @ 1.875 mls/ hr Q24H IV 08/22/24 15:45 Heparin Sodium/ Dextrose 250 ml @ 13 mls/hr [id number] IV 08/23/24 03:15 08/23/24 03:44 13 MLS/HR Potassium Chloride 100 ml @ 50 mls/hr Q2H IV 08/23/24 09:15 08/23/24 13:14 08/23/24 12:26 50 MLS/HR Laboratory Results Laboratory Tests 08/23/24 03:02 Chemistry Test 08/23/24 03:02 Albumin 3.8 g/dL (3.2-4.8) Calcium Level 8.7 mg/dL (8.7-10.4) Magnesium Level 2.1 mg/dL (1.6-2.6) Total Protein 6.1 g/dL (5.7-8.2) Coagulation Test 08/22/24 15:30 08/23/24 02:00 08/23/24 09:55 Prothrombin Time 11.6 sec (9.3-11.8) 11.9 sec (9.3-11.8) H 12.1 sec (9.3-11.8) H Prothrombin Time INR 1.11 (0.9-1.15) 1.14 (0.9-1.15) 1.16 (0.9-1.15) H Activated Partial Thromboplast Time 30.9 SEC (24.5-34.5) 35.6 SEC (24.5-34.5) H 54.2 SEC (24.5-34.5) H LFT Test 08/23/24 03:02 Alanine Aminotransferase (ALT) 106 U/L (7-40) H Alkaline Phosphatase 69 U/L (46-116) Aspartate Amino Transferase (AST) 96 U/L (13-40) H Total Bilirubin 1.0 mg/dL (0.2-1.0) Urinalysis Test 08/19/24 13:10 Urine Color Yellow (Yellow) Urine Clarity Turbid (Clear) H Urine pH 6.0 (5.0-9.0) Urine Specific [place] 1.018 (1.001-1.035) Urine Protein 2+ (Negative) H Urine Ketones Negative (Negative) Urine Blood 2+ /uL (Negative) H Urine Nitrite Negative (Negative) Urine Bilirubin Negative (Negative) Urine Urobilinogen Normal mg/dL (Negative) Urine Leukocyte Esterase Negative /uL (Negative) Urine RBC 12 /hpf (0 - 3) Urine Microscopic WBC 7 /HPF (0-3) H Urine Squamous Epithelial Cells Mod /hpf (<5) Urine Bacteria Few /hpf (None Seen) H Urine Mucus Few (None Seen) Urine Creatinine 108.36 mg/dL (30.0-125.0) Urine Sodium 51 mmol/L (40-220) Urine Glucose 1+ mg/dL (Normal) H Blood Gas Results Test 08/23/24 07:05 Arterial Blood pH 7.340 (7.350-7.450) FiO2 % 30.0 Microbiology Microbiology Date/Time Source Procedure Growth Status 08/20/24 12:40 Nose MRSA Screen - Final Complete 08/19/24 13:10 Voided Urine Urine Culture - Final Complete 08/19/24 12:30 Blood Blood Culture - Preliminary Resulted 08/19/24 11:45 Sputum Gram Stain - Final Complete 08/19/24 11:45 Respiratory Culture - Final Enterobacter aerogenes Complete Assessment/Plan Assessment/Plan -cardiopulmonary arrest -NSTEMI, rule out type 1 -obesity -acute respiratory failure with mechanical ventilation -rule out anoxic encephalopathy -asthma -leukocytosis, rule out sepsis -? sepsis Plan: -The patient continues to be sedated. Apparently, the patient did have some ventilator asynchrony with belly breathing. MRI of the brain will be ordered. -continuing tube feeding -appreciate cardiology input No intervention at this time -continue checking serial troponin, EKG for ST changes -wean off sedation -PUD, DVT prophylaxis -continue antibiotics given Gram-positive cocci in blood -continue full-dose anticoagulation with Lovenox, aspirin -repeat labs, chest x-ray, ABG in a.m. -per Dr. Servin, personal investment adviser, he recommend to transfer the patient to higher level of care as [facility]. Daughter wants the patient to transfer to [facility] because she works at [facility]. She is working on accepting physician. -discussion made with the patient's family were bedside. All questions answered. Critical case pain for this case is 37 minute This medical document was created using an electronic medical record system with [employer] direct computerized dictation system. Although this document has been carefully reviewed, there may still be some phonetic and typographical errors. These areas are purely typographical due to imperfections of the software programs, and do not reflect any compromise in the patient's medical care. My Orders Orders - JOEL HAUSER MD Procedure Category Date Status Time * Shells Inspector CONS 08/23/24 Transmitted Consult 09:25 Imaging Transfer ORDERS 08/23/24 Transmitted Request 11:00 JOEL HAUSER MD August 23, 2024 13:12
--- NOTE | 2024-08-23 14:53 | DVHDS2 ---
Discharge Summary Date of Admission August 19, 2024 at 14:35 Date of Discharge: August 23, 2024 Admitting Diagnosis -cardiopulmonary arrest -NSTEMI, rule out type 1 -obesity -acute respiratory failure with mechanical ventilation -rule out anoxic encephalopathy -asthma -leukocytosis, rule out sepsis -? sepsis Labs/Diagnostic Data: Laboratory Results Test 08/23/24 12:31 08/23/24 09:55 08/23/24 07:05 08/23/24 03:02 POC Glucose 101 mg/dl (70-106) Prothrombin Time 12.1 sec (9.3-11.8) Prothrombin Time INR 1.16 (0.9-1.15) Activated Partial Thromboplast Time 54.2 SEC (24.5-34.5) Blood Gas Specimen Type Arterial Blood Gas Sample Site Right radial Blood Gas Patient Temperature 37.0 Arterial Blood Date Drawn [id number] Arterial Blood pH 7.340 (7.350-7.450) Arterial Blood Partial Pressure CO2 37.2 mmHg (35.0-48.0) Arterial Blood Partial Pressure O2 68.4 mmHg (83.0-108.0) Arterial Blood HCO3 19.6 mmol/L (21.0-28.0) Arterial Blood Oxygen Saturation 92.5 % (94.0-98.0) Arterial Blood Base Excess -5.5 mmol/L (-2.0-3.0) Arterial Blood Oxyhemoglobin 91.9 % (94.0-98.0) Arterial Blood Carboxyhemoglobin 0.3 % (0.5-1.5) Arterial Blood Methemoglobin 0.3 % (0.0-1.5) Thee Test Modified Blood Gas Total Hemoglobin 13.10 g/dL (13.5-17.5) Blood Gas Set Respiration Rate 24.0 Blood Gas Modality Vent - ac FiO2 % 30.0 Blood Gas Tidal Volume 550.0 Blood Gas PEEP or CPAP 5.0 White Blood Count 9.6 10^3/uL (4.4-10.8) Red Blood Count 3.92 10^6/uL (4.5-5.90) Hemoglobin 12.6 g/dL (13.5-17.5) Hematocrit 36.7 % (41.0-53.0) Mean Corpuscular Volume 93.8 fL (80.0-100.0) Mean Corpuscular Hemoglobin 32.2 pg (28.0-32.0) Mean Corpuscular Hemoglobin Concent 34.3 g/dL (32.0-36.0) Red Cell Distribution Width 14.4 % (11.8-14.3) Platelet Count 199 10^3/uL (140-450) Mean Platelet Volume 8.6 fL (6.9-10.8) Neutrophils (%) (Auto) 66.7 % (37.0-80.0) Lymphocytes (%) (Auto) 23.0 % (10.0-50.0) Monocytes (%) (Auto) 8.6 % (0.0-12.0) Eosinophils (%) (Auto) 1.0 % (0.0-7.0) Basophils (%) (Auto) 0.7 % (0.0-2.0) Neutrophils # (Auto) 6.4 10 ^3/uL (1.6-8.6) Lymphocytes # (Auto) 2.2 10 ^3/uL (0.4-5.4) Monocytes # (Auto) 0.8 10 ^3/uL (0-1.3) Eosinophils # (Auto) 0.1 10 ^3/uL (0-0.8) Basophils # (Auto) 0.1 10 ^3/uL (0-0.2) Nucleated Red Blood Cells 0.0 % Sodium Level 143 mmol/L (136-145) Potassium Level 3.3 mmol/L (3.5-5.1) Chloride Level 110 mmol/L (98-107) Carbon Dioxide Level 19 mmol/L (20-31) Anion Gap 14 (5-15) Blood Urea Nitrogen 13 mg/dL (9-23) Creatinine 0.97 mg/dL (0.700-1.30) Glomerular Filtration Rate Calc 87 mL/min (>90) BUN/Creatinine Ratio 13.4 (10.0-20.0) Serum Glucose 119 mg/dL (74-106) Calcium Level 8.7 mg/dL (8.7-10.4) Magnesium Level 2.1 mg/dL (1.6-2.6) Total Bilirubin 1.0 mg/dL (0.2-1.0) Aspartate Amino Transferase (AST) 96 U/L (13-40) Alanine Aminotransferase (ALT) 106 U/L (7-40) Alkaline Phosphatase 69 U/L (46-116) Total Protein 6.1 g/dL (5.7-8.2) Albumin 3.8 g/dL (3.2-4.8) Test 08/22/24 03:15 08/21/24 17:35 08/21/24 06:56 08/20/24 13:12 Hemoglobin A1c 5.6 % A1C (<5.7) Triglycerides Level 151 mg/dL (< 150) Cholesterol Level 108 mg/dL (< 200) LDL Cholesterol 65 mg/dL (< 100) HDL Cholesterol 24 mg/dL (40-59) Thyroid Stimulating Hormone (TSH) 2.09 uIU/mL (0.55-4.78) Vancomycin Level Trough 8.1 ug/mL (5-10) Blood Gas Spontaneous Rate 24 Troponin I High Sensitivity 1475 ng/L (</=54) Test 08/20/24 05:05 08/19/24 13:35 08/19/24 13:10 08/19/24 11:45 Lactic Acid Level 1.8 mmol/L (0.4-2.0) Blood Gas Critical Value Read Back yes Blood Gas Notified Whom Blood Gas Notified Time [id number] Blood Gas Notified By surgery scheduling coordinator harriet Urine Color Yellow (Yellow) Urine Clarity Turbid (Clear) Urine pH 6.0 (5.0-9.0) Urine Specific [place] 1.018 (1.001-1.035) Urine Protein 2+ (Negative) Urine Ketones Negative (Negative) Urine Blood 2+ /uL (Negative) Urine Nitrite Negative (Negative) Urine Bilirubin Negative (Negative) Urine Urobilinogen Normal mg/dL (Negative) Urine Leukocyte Esterase Negative /uL (Negative) Urine RBC 12 /hpf (0 - 3) Urine Microscopic WBC 7 /HPF (0-3) Urine Squamous Epithelial Cells Mod /hpf (<5) Urine Bacteria Few /hpf (None Seen) Urine Mucus Few (None Seen) Urine Creatinine 108.36 mg/dL (30.0-125.0) Urine Sodium 51 mmol/L (40-220) Urine Glucose 1+ mg/dL (Normal) Urine Opiates Screen Neg (NEGATIVE) Urine Fentanyl Screen Neg (NEGATIVE) Urine Barbiturates Screen Neg (NEGATIVE) Urine Phencyclidine Screen Neg (NEGATIVE) Urine Amphetamines Screen Neg (NEGATIVE) Urine Benzodiazepines Screen Pos (NEGATIVE) Urine Cocaine Screen Neg (NEGATIVE) Urine Cannabinoids Screen Neg (NEGATIVE) Erythrocyte Sedimentation Rate 7 mm/hr (0-20) C-Reactive Protein High Sensitivity 0.86 mg/dL (<1.0) B-Type Natriuretic Peptide 175.57 pg/mL (0-100) Other Laboratory Tests 08/23/24 03:02 Brief Hx & Hospital Course: This is a 64 years old male come into emergency department with cardiac arrest . The patient was found by his collapsed in the shower. Per EMS the patient was cyanotic. His started chest compression and [id number]. The patient was hypotensive with systolic reason at 55. EMS was giving him one mg of epinephrine. The patient started having VFib. They shocked him on the feel and he back to sinus tach. The patient was intubated and on vent in the hospital. The patient continuing to have V-fib and elevation of troponin level. The patient subsequently had cardiac catheterization done. The cardiac catheterization showed and coronary angiogram revealing multivessel disease including the LAD, RCA, and LCx (report pending at this time). Spoke with Dr. Servin , supervisor wheel shop. He recommendation to transfer to [facility] for CABG. The patient was on single antiplatelet therapy with ASA (avoid Plavix/Brilinta) and initiate heparin drip per pharmacy protocol. A transthoracic echocardiogram revealed an EF of 35-40%. Initiate GDMT for CHF when appropriate. Avoid QTc prolonging agents including Haloperidol, quetiapine, olanzapine, amiodarone, sotalol, dofetilide, procainamide, quinidine, flecainide, Macrolides, fluoroquinolones, and/or ondansetron. Replete electrolytes as necessary including K>4 and mg >2. MRI of the brain showed no acute CVA. The patient get accepted in [facility]. The accepting physician is Dr Po Heller. I am going to transfer the patient to [facility]. Activity as tolerated. Diet NPO for now. Follow up with primary care physician 1-2 weeks after discharge from the hospital. Follow up with Cardiothoracic surgeon per schedule. The patient is stable to transfer to [facility] tonight. Physical exam: HEENT: Normocephalic atraumatic pupils equal react to light. Patient is intubated and on vent and accommodation. ET tube into Lymphatic: No lymphadenopathy Cardiovascular exam: S1, S2 was heard. No murmurs, rubs, gallops Lung: Clear on auscultation bilaterally, no wheeze, rale, rhonchi. GI: Abdominal soft, nondistended, nontenderness, positive bowel sounds. Extremity: No crepitus, cyanosis, edema. Pedal pulses present bilateral. Full range of motion. Skin: Normal turgor, no rash. Psych: Intubated on vent unable to exam Neurology: Intubated, on vent, unable to exam. This medical document was created using an electronic medical record system with [employer] computerized dictation system. Although this document has been carefully reviewed, there may still be some phonetic and typographical errors. These areas are purely typographical due to imperfections of the software programs, and do not reflect any compromise in the patient's medical care. Condition at Discharge: Stable Final Diagnosis/Problems List -cardiopulmonary arrest -NSTEMI, rule out type 1 -obesity -acute respiratory failure with mechanical ventilation -rule out anoxic encephalopathy -asthma -leukocytosis, rule out sepsis -? sepsis Discharge Disposition: Acute Care Facility Discharge Instruct/Medications Diet: Cardiac 2g Na,low cholest Activity: No Restrictions, As Tolerated Follow Up/Referral: PCP 1-2 WEEKS CONCRETE GRINDER OPERATOR PER SCHEDULE Discharge Statement: "Patient was advised to return to the ER or call 911 if any headaches, dizziness, shortness of breath, chest pain, abdominal pain, bleeding, fevers, or worsening of medical condition. Patient was counseled about treatment plan, medications, possible side effects, patientverbalized understanding. All questions were answered to the best of my ability. This discharge took greater then 30 minutes in planning, reviewing documentation, counseling the patient, and discussing with other team members." ASSESSMENT ASSESSMENT Assessment ACUTE AL Date of Service: August 23, 2024 Billing Provider: JOEL HAUSER MD Common Visit Codes: 16240-GWF/OBS DISCH DAY >30min JOEL HAUSER MD August 23, 2024 14:53
[2024-08-23 16:19] LABS: INR 1.15 (0.9-1.15); Partial Thromboplastin Time 50.3 SEC (24.5-34.5)
--- NOTE | 2024-08-23 17:14 | DVHOP ---
DATE OF SURGERY: 08/21/2024 TECHNIQUES PERFORMED: * Emergency case. * Insertion of a 6-[place]el[place] arterial line from the right femoral artery under fluoroscopic guidance. * Management of conscious sedation. * Management of mechanical ventilation. * Left heart cath. * Left ventriculogram. * [place] selective left and right coronary artery angiography. * Right iliofemoral artery angiography. * Arteriotomy, Angio-Seal of the right femoral artery. COMPLICATIONS: None. ASSISTED BY: Assisted by Carly Green Angela and Berna. INDICATIONS: * Cardiac catheterization. * Ventricular fibrillation. * Acute myocardial infarction. Q-wave pattern noted in II, III and aVF. * Loss of V1 to V3. DESCRIPTION OF PROCEDURE: The patient has come to the lab pack chemist dicussed with the patient's daughter, Lashonda, and the informed consent obtained. The patient was brought to the lab pack chemist. Right groin was shaved, was cleaned with soap and Betadine. A 6-Welsh arterial line had been placed in a standard manner under fluoroscopy. With a JL4 catheter, left coronary angio done. With the help of the JR4 catheter, we also did a right groin angiography. Intracoronary administration of the of nitroglycerine was given and right groin angiography again had been repeated and also frequently with the help of the pigtail catheter, complete left heart cath had been done. The left ventriculogram was done in the right anterior oblique view with total of 20 mL of dye. Post-LV gram, left ventriculogram performed with the help of pull-through technique. Aortic pressure was also performed. J-wire was passed. Pigtail catheter also had been discontinued. At the end of the procedure, we also did a right iliofemoral artery angiography. Arteriotomy, Angio-Seal of the right femoral artery also was done. Procedure went well. No complications. IMPRESSION: * The ejection fraction of the left ventricle is actually in the range of 45% plus the anterior wall motion is still normal. The entire inferior wall of the left ventricle is remarkably hypokinetic. * The patient's left main is normal. * Left main is divided into the left ventricular artery and the circumflex artery. There is origin of high obtuse marginal artery arising from the left main distal region of the right coronary artery all the way to his posterior descending artery and also filling up the posterolateral branch. Please note circumflex artery is narrowed 99% in mid region. It is a large-caliber artery. * The right coronary artery is a dominant artery, but right coronary artery is 100% chronically occluded at the proximal one-third region and there is KANDY grade 1 flow noted from proximal to distal region; however, there is no flow past the distal region. * There is also the region of the marginal branch arising from the most proximal region of the right coronary artery branches. The marginal branch has been supplying the inferior posterolateral wall of the left ventricle and it is also noted that the marginal branch is also giving the branch to fill up the left anterior descending artery. CONCLUSIONS: * The patient has underlying significant triple-vessel coronary artery disease. The patient did go [facility] and he will qualify for open heart surgery if his neurological status improves. Overall, meanwhile he will be continued on the anticoagulation medicine and do not give him the Plavix at this time. * Aspirin and heparin or Lovenox in full dose. * To further discuss with a family member. The procedure was done at 11:40 p.m. on 08/21/2024. Padmaja Servin MD MP/ANEL/JATINDER TID: [id number] RECEIPT: [id number] [facility]
[2024-08-23] MEDS ORDERED: VANCOMYCIN 1GM/200ML PM 200 ML IV SCH (18:00)
== END 2024-08-23 17:18 | disposition short-term general hospital (02) | DRG 870 ==
LOC: EDBD 11:35 → ER 11:35 → EEVIPCON 11:35 → OVERFLOW 14:35 → ICU WEST 08-20 12:07
PROVIDERS: ADMIT Nurse Practitioner Acute Care; ATTEND Nurse Practitioner Acute Care
PROC: 5A1955Z Respiratory Ventilation, Greater than 96 Consecutive Hours (ICD-10-PCS; principal; 2024-08-19)
PROC: 0BH17EZ Insertion of Endotracheal Airway into Trachea, Via Natural or Artificial Opening (ICD-10-PCS; 2024-08-19)
PROC: 06HY33Z Insertion of Infusion Device into Lower Vein, Percutaneous Approach (ICD-10-PCS; 2024-08-19)
PROC: 04HY32Z Insertion of Monitoring Device into Lower Artery, Percutaneous Approach (ICD-10-PCS; 2024-08-21)
PROC: 4A023N7 Measurement of Cardiac Sampling and Pressure, Left Heart, Percutaneous Approach (ICD-10-PCS; 2024-08-21)
PROC: B2111ZZ Fluoroscopy of Multiple Coronary Arteries using Low Osmolar Contrast (ICD-10-PCS; 2024-08-21)
PROC: B2151ZZ Fluoroscopy of Left Heart using Low Osmolar Contrast (ICD-10-PCS; 2024-08-21)
PROC: B41F1ZZ Fluoroscopy of Right Lower Extremity Arteries using Low Osmolar Contrast (ICD-10-PCS; 2024-08-21)
DX: A41.9 Sepsis, unspecified organism (principal); I46.9 Cardiac arrest, cause unspecified; I49.01 Ventricular fibrillation; J96.01 Acute respiratory failure with hypoxia; I21.4 Non-ST elevation (NSTEMI) myocardial infarction; N17.0 Acute kidney failure with tubular necrosis; J69.0 Pneumonitis due to inhalation of food and vomit; J18.9 Pneumonia, unspecified organism; E87.20 Acidosis, unspecified; G93.1 Anoxic brain damage, not elsewhere classified; E66.9 Obesity, unspecified; J45.909 Unspecified asthma, uncomplicated; E78.5 Hyperlipidemia, unspecified; E83.51 Hypocalcemia; S09.8XXA Other specified injuries of head, initial encounter; I50.9 Heart failure, unspecified; I11.0 Hypertensive heart disease with heart failure; I25.10 Atherosclerotic heart disease of native coronary artery without angina pectoris; I45.10 Unspecified right bundle-branch block; Z68.32 Body mass index [BMI] 32.0-32.9, adult; Z79.899 Other long term (current) drug therapy; X58.XXXA Exposure to other specified factors, initial encounter; Y93.89 Activity, other specified; Y92.89 Other specified places as the place of occurrence of the external cause; Y99.8 Other external cause status
CPT/HCPCS: 36415; 36556; 36600; 70450; 70486; 70496; 70498; 70551; 71045; 72125; 75710; 76705; 76775; 80053; 80061; 80202; 80307; 81001; 82570; 82805; 82962; 83036; 83605; 83735; 83880; 84300; 84443; 84484; 85025; 85610; 85652; 85730; 86141; 86850; 86900; 86901; 87040; 87070; 87076; 87077; 87081; 87086; 87186; 87205; 93005; 93306; 93458; 94002; 94003; 94640; 99152; G0378; J1815; J2250; J2543; J2704; J3480; Q9967